=== PATIENT | female | born 1995 | race Caucasian/White ===

== ENCOUNTER 2017-12-15 11:11 | Inpatient (IN) | payer BC, OTHER ==
[2017-12-15] MEDS ORDERED: Bupivacaine 0.25% 10 ML SDV ONE (22:00)
[2017-12-15] MEDS ORDERED: Nalbuphine 20 MG/ML 1 ML Syringe IVPUSH PRN (22:36)
[2017-12-15] MEDS ORDERED: Sodium Chloride 0.9% 10 ML Syringe FLUSH PRN (22:36)
[2017-12-15] MEDS ORDERED: Ondansetron 4 MG/2 ML SDV IVPUSH PRN (22:36)
[2017-12-15] MEDS ORDERED: Oxytocin/Lactated Ringers 10 UNIT/1,000 ML BAG IV SCH (22:45)
--- NOTE | 2017-12-15 23:33 | PCM.LDHP ---
<Eliana Maguire L - Last Filed: 12/15/17 23:23> L&D History of Present Illness - General Date of Service: 12/15/17 Admit Problem/Dx: Patient Status Order with Admit Dx/Problem 12/15/17 22:36 Patient Status [ADT] Routine Admission Diagnosis/Problem Admission Diagnosis/Problem Normal labor Source of Information: Patient, Old Records History Limitations: Reports: No Limitations - History of Present Illness Introduction:: Amy is a white 22 YO female who presented to labor and delivery following spontaneous rupture of her membranes at 39-1/7 weeks gestation. VALENTINO is 12/20/17 by LMP, confirmed by U/S on 04/28/17. Patient is 1-2 cm dilated, 65 % effaced, and at -3 station, landen every 4-5 minutes. History significant for -related N/V, pre-/syncope, intermittent bilateral LE swelling. FHx Marfan syndrome in Mother, Brother, per patient she is negative on genetic testing. Otherwise non-contributory. GBS screen negative. Blood type is O NEG, antibody screen/GC/Chlamydia/HIV/HBV/ Syphilis were all negative. Per patient record, received 1 dose Rhogam at 27w2d on 09/22/17. - Related Data Allergies/Adverse Reactions: Allergies Allergy/AdvReac Type Severity Reaction Status Date / Time Sulfa (Sulfonamide Allergy Hives Verified 12/15/17 22:33 Antibiotics) sulfamethoxazole Allergy Hives Verified 12/15/17 22:33 [From Bactrim] trimethoprim [From Bactrim] Allergy Hives Verified 12/15/17 22:33 Past Medical History Respiratory History: Reports: Asthma - Past Surgical History HEENT Surgical History: Reports: Oral Surgery ([place] teeth), Tonsillectomy Social & Family History - Family History Cardiac: Reports: Hypertension (Pt. states father is on "blood pressure medication" but unsure why), Other (See Below) (Marfan-related aortic dissection in Brother, aged 18. Marfan-related valvular disease in mother) - Tobacco Use Smoking Status *Q: Never Smoker - Caffeine Use Caffeine Use: Reports: None - Living Situation & Occupation Living situation: Reports: H&P Review of Systems - Review of Systems: Review Of Systems: ROS reveals no pertinent complaints other than HPI. General: Reports: No Symptoms HEENT: Reports: No Symptoms L&D Exam - Exam Exam: See Below - Vital Signs Weight: 85.729 kg - Fonseca Score Fonseca Score Cervix Position: Posterior Fonseca Score Effacement: 51-70% Fonseca Score Dilation: 1-2 cm Fonseca Score 's Station: -3 - Exam General: Alert, Oriented HEENT: Conjunctiva Clear, Hearing Intact, Mucosa Moist & [place], Pupils Equal Lungs: Clear to Auscultation, Normal Respiratory Effort Cardiovascular: Regular Rate, Regular Rhythm GI/Abdominal Exam: Normal Bowel Sounds Extremities: Normal Inspection, Normal Range of Motion, Non-Tender, No Pedal Edema, Normal Capillary Refill Skin: Warm, Dry, Intact Psychiatric: Alert, Normal Affect, Normal Mood - Patient Data Lab Results Last 24 hrs: Laboratory Results - last 24 hr 12/15/17 Range/Units 22:48 WBC 10.79 H (3.98-10.04) K/mm3 RBC 4.29 (3.98-5.22) M/mm3 Hgb 11.0 L (11.2-15.7) gm/L Hct 34.5 (34.1-44.9) % MCV 80.4 (79.4-94.8) fl MCH 25.6 (25.6-32.2) pg MCHC 31.9 L (32.2-35.5) g/dl RDW Std Deviation 45.2 (36.4-46.3) fL Plt Count 209 (182-369) K/mm3 MPV 9.8 (9.4-12.3) fl Neut % (Auto) 71.0 (34.0-71.1) % Lymph % (Auto) 16.1 L (19.3-51.7) % [place] % (Auto) 10.1 (4.7-12.5) % Eos % (Auto) 1.9 (0.7-5.8) Baso % (Auto) 0.3 (0.1-1.2) % Neut # (Auto) 7.67 H (1.56-6.13) K/mm3 Lymph # (Auto) 1.74 (1.18-3.74) K/mm3 [place] # (Auto) 1.09 H (0.24-0.36) K/mm3 Eos # (Auto) 0.20 (0.04-0.36) K/mm3 Baso # (Auto) 0.03 (0.01-0.08) K/mm3 Result Diagrams: 12/15/17 22:48 Orders Last 24hrs: Active Orders 24 hr Category Date Time Status Patient Status [ADT] Routine ADT 12/15/17 22:36 Active Activity as Tolerated [RC] PFP Care 12/15/17 22:36 Active Communication Order [RC] ASDIRECTED Care 12/15/17 22:36 Active Heart Tones [RC] ASDIRECTED Care 12/15/17 22:37 Active Non Stress Test [RC] PER UNIT ROUTINE Care 12/15/17 22:36 Active Notify Provider [RC] PFP Care 12/15/17 22:36 Active Notify Provider [RC] PRN Care 12/15/17 22:36 Active Peripheral IV Care [RC] . DIRECTED Care 12/15/17 22:37 Active Pump Management, Intrathecal [RC] ASDIRECTED Care 12/15/17 22:37 Active Vital Signs [RC] PER UNIT ROUTINE Care 12/15/17 22:36 Active RAPID PLASMA REAGIN,RPR [CHEM] Routine Lab 12/15/17 22:48 Received Lactated Ringers [Ringers, Lactated] 1,000 ml Med 12/15/17 22:45 Active IV ASDIRECTED Nalbuphine [Nubain] Med 12/15/17 22:36 Active 10 mg IVPUSH Q2H PRN Ondansetron [Zofran] Med 12/15/17 22:36 Active 4 mg IVPUSH Q4H PRN Oxytocin/Lactated Ringers [Pitocin in LR 10 Units/1,000 Med 12/15/17 22:45 Active ML] 10 unit in 1,000 ml IV .CONTINUOUS Sodium Chloride 0.9% [Saline Flush] Med 12/15/17 22:36 Active 10 ml FLUSH ASDIRECTED PRN Electronic Heart Tones Ext w TOCO [WOMSER] Oth 12/15/17 22:36 Ordered Routine Electronic Heart Tones Internal [WOMSER] Per Unit Oth 12/15/17 22:36 Ordered Routine Peripheral IV Insertion Adult [OM.PC] Routine Oth 12/15/17 22:36 Ordered Resuscitation Status Routine Resus Stat 12/15/17 22:36 Ordered Medication Orders Lactated Ringer's (Ringers, Lactated) 1,000 mls @ 100 mls/hr IV ASDIRECTED SHELLI Oxytocin/Lactated Ringer's (Pitocin In Lr 10 Units/1,000 Ml) 10 unit in 1,000 mls @ 500 mls/hr IV .CONTINUOUS SHELLI Nalbuphine HCl (Nubain) 10 mg IVPUSH Q2H PRN PRN Reason: pain Ondansetron HCl (Zofran) 4 mg IVPUSH Q4H PRN PRN Reason: Nausea/Vomiting Sodium Chloride (Saline Flush) 10 ml FLUSH ASDIRECTED PRN PRN Reason: Keep Vein Open Assessment/Plan Comment:: ASSESSMENT 1. 39-1/7 weeks gestation 2. Normal labor 3. Rh negative state in antepartum/georgi- state 4. Hx Asthma PLAN 1. Continue monitoring labor 2. Plan for <Reg Ferrer F - Last Filed: 12/16/17 07:05> L&D History of Present Illness - General Admit Problem/Dx: Patient Status Order with Admit Dx/Problem 12/15/17 22:36 Patient Status [ADT] Routine Admission Diagnosis/Problem Admission Diagnosis/Problem Normal labor H&P Review of Systems - Review of Systems: Review Of Systems: See Below L&D Exam - Exam Exam: See Below - Vital Signs Vital Signs: Last Vital Signs Temp 36.3 C 12/16/17 01:03 Pulse 55 L 12/16/17 01:03 Resp 16 12/16/17 02:10 BP 137/74 12/16/17 01:03 Pulse Ox - Patient Data Lab Results Last 24 hrs: Laboratory Results - last 24 hr 12/15/17 Range/Units 22:48 WBC 10.79 H (3.98-10.04) K/mm3 RBC 4.29 (3.98-5.22) M/mm3 Hgb 11.0 L (11.2-15.7) gm/L Hct 34.5 (34.1-44.9) % MCV 80.4 (79.4-94.8) fl MCH 25.6 (25.6-32.2) pg MCHC 31.9 L (32.2-35.5) g/dl RDW Std Deviation 45.2 (36.4-46.3) fL Plt Count 209 (182-369) K/mm3 MPV 9.8 (9.4-12.3) fl Neut % (Auto) 71.0 (34.0-71.1) % Lymph % (Auto) 16.1 L (19.3-51.7) % [place] % (Auto) 10.1 (4.7-12.5) % Eos % (Auto) 1.9 (0.7-5.8) Baso % (Auto) 0.3 (0.1-1.2) % Neut # (Auto) 7.67 H (1.56-6.13) K/mm3 Lymph # (Auto) 1.74 (1.18-3.74) K/mm3 [place] # (Auto) 1.09 H (0.24-0.36) K/mm3 Eos # (Auto) 0.20 (0.04-0.36) K/mm3 Baso # (Auto) 0.03 (0.01-0.08) K/mm3 Result Diagrams: 12/15/17 22:48 Problem List Initiated/Reviewed/Updated: Yes Orders Last 24hrs: Active Orders 24 hr Category Date Time Status Patient Status [ADT] Routine ADT 12/15/17 22:36 Active Activity as Tolerated [RC] PFP Care 12/15/17 22:36 Active Communication Order [RC] ASDIRECTED Care 12/15/17 22:36 Active Heart Tones [RC] ASDIRECTED Care 12/15/17 22:37 Active Non Stress Test [RC] PER UNIT ROUTINE Care 12/15/17 22:36 Active Notify Provider [RC] PFP Care 12/15/17 22:36 Active Notify Provider [RC] PRN Care 12/15/17 22:36 Active Peripheral IV Care [RC] . DIRECTED Care 12/15/17 22:37 Active Pump Management, Intrathecal [RC] ASDIRECTED Care 12/15/17 22:37 Active Vital Signs [RC] PER UNIT ROUTINE Care 12/15/17 22:36 Active RAPID PLASMA REAGIN,RPR [CHEM] Routine Lab 12/15/17 22:48 Received Bupivacaine/fentaNYL/NS [fentaNYL/Bupivacaine/NS 2 MCG- Med 12/16/17 02:15 Active 0.125% 100 ML] 100 ml EPIDUR ASDIRECTED Lactated Ringers [Ringers, Lactated] 1,000 ml Med 12/15/17 22:45 Active IV ASDIRECTED Nalbuphine [Nubain] Med 12/15/17 22:36 Active 10 mg IVPUSH Q2H PRN Ondansetron [Zofran] Med 12/16/17 02:10 Active 4 mg IVPUSH ONETIME PRN Ondansetron [Zofran] Med 12/15/17 22:36 Active 4 mg IVPUSH Q4H PRN Oxytocin/Lactated Ringers [Pitocin in LR 10 Units/1,000 Med 12/15/17 22:45 Active ML] 10 unit in 1,000 ml IV .CONTINUOUS Sodium Chloride 0.9% [Saline Flush] Med 12/15/17 22:36 Active 10 ml FLUSH ASDIRECTED PRN diphenhydrAMINE [Benadryl] Med 12/16/17 02:10 Active 25 mg IVPUSH Q6H PRN ePHEDrine [ePHEDrine Sulfate] Med 12/16/17 02:10 Active 5 mg IVPUSH ASDIRECTED PRN fentaNYL [Sublimaze] Med 12/16/17 02:10 Active 100 mcg EPIDUR Q3H PRN Electronic Heart Tones Ext w TOCO [WOMSER] Oth 12/15/17 22:36 Ordered Routine Electronic Heart Tones Internal [WOMSER] Per Unit Oth 12/15/17 22:36 Ordered Routine Peripheral IV Insertion Adult [OM.PC] Routine Oth 12/15/17 22:36 Ordered Resuscitation Status Routine Resus Stat 12/15/17 22:36 Ordered Medication Orders Diphenhydramine HCl (Benadryl) 25 mg IVPUSH Q6H PRN PRN Reason: Pruritis Ephedrine Sulfate (Ephedrine Sulfate) 5 mg IVPUSH ASDIRECTED PRN PRN Reason: Hypotension Fentanyl (Sublimaze) 100 mcg EPIDUR Q3H PRN PRN Reason: Pain Last Admin: 12/16/17 04:28 Dose: 100 mcg Fentanyl/Bupivacaine HCl (Fentanyl/Bupivacaine/Ns 2 Mcg-0.125% 100 Ml) 100 ml EPIDUR ASDIRECTED SHELLI Last Admin: 12/16/17 04:29 Dose: 100 ml Lactated Ringer's (Ringers, Lactated) 1,000 mls @ 100 mls/hr IV ASDIRECTED SHELLI Last Admin: 12/16/17 03:30 Dose: 100 mls/hr Oxytocin/Lactated Ringer's (Pitocin In Lr 10 Units/1,000 Ml) 10 unit in 1,000 mls @ 500 mls/hr IV .CONTINUOUS SHELLI Nalbuphine HCl (Nubain) 10 mg IVPUSH Q2H PRN PRN Reason: pain Ondansetron HCl (Zofran) 4 mg IVPUSH Q4H PRN PRN Reason: Nausea/Vomiting Ondansetron HCl (Zofran) 4 mg IVPUSH ONETIME PRN PRN Reason: Nausea/Vomiting Sodium Chloride (Saline Flush) 10 ml FLUSH ASDIRECTED PRN PRN Reason: Keep Vein Open
[2017-12-16] MEDS ORDERED: diphenhydrAMINE 50 MG/ML SDV IVPUSH PRN (02:10)
[2017-12-16] MEDS ORDERED: Ondansetron 4 MG/2 ML SDV IVPUSH PRN (02:10)
[2017-12-16] MEDS ORDERED: ePHEDrine 50 MG/ML SDV IVPUSH PRN (02:10)
[2017-12-16] MEDS ORDERED: fentaNYL 100 MCG/2 ML SDV EPIDUR PRN (02:10)
--- NOTE | 2017-12-16 02:10 | PCM.PREANE ---
Preanesthetic Assessment - Procedure Proposed Procedure: JANETH - Anesthesia/Transfusion/Family Hx Anesthesia History: Prior Anesthesia Without Reaction Family History of Anesthesia Reaction: No Transfusion History: No Prior Transfusion(s) - Review of Systems General: No Symptoms Pulmonary: Other (Asthma- uses symbicort daily ) Cardiovascular: No Symptoms Gastrointestinal: Other (GERD during ) Neurological: No Symptoms Other: Reports: None - Physical Assessment NPO Status Date: 12/16/17 NPO Status Time: 15:00 Respiratory Rate: 16 Vital Signs: Last Vital Signs Temp 36.3 C 12/16/17 01:03 Pulse 55 L 12/16/17 01:03 Resp 16 12/16/17 01:03 BP 137/74 12/16/17 01:03 Pulse Ox Height: 1.65 m Weight: 85.729 kg ASA Class: 2 Mental Status: Alert & Oriented x3 Airway Class: Mallampati = 1 Dentition: Reports: Normal Dentition Thyro-Mental Finger Breadths: 3 Mouth Opening Finger Breadths: 3 ROM/Head Extension: Full Lungs: Clear to Auscultation, Normal Respiratory Effort Cardiovascular: Regular Rate, Regular Rhythm - Lab Values: Laboratory Last Values WBC 10.79 K/mm3 (3.98-10.04) H 12/15/17 22:48 RBC 4.29 M/mm3 (3.98-5.22) 12/15/17 22:48 Hgb 11.0 gm/L (11.2-15.7) L 12/15/17 22:48 Hct 34.5 % (34.1-44.9) 12/15/17 22:48 MCV 80.4 fl (79.4-94.8) 12/15/17 22:48 MCH 25.6 pg (25.6-32.2) 12/15/17 22:48 MCHC 31.9 g/dl (32.2-35.5) L 12/15/17 22:48 RDW Std Deviation 45.2 fL (36.4-46.3) 12/15/17 22:48 Plt Count 209 K/mm3 (182-369) 12/15/17 22:48 MPV 9.8 fl (9.4-12.3) 12/15/17 22:48 Neut % (Auto) 71.0 % (34.0-71.1) 12/15/17 22:48 Lymph % (Auto) 16.1 % (19.3-51.7) L 12/15/17 22:48 [place] % (Auto) 10.1 % (4.7-12.5) 12/15/17 22:48 Eos % (Auto) 1.9 (0.7-5.8) 12/15/17 22:48 Baso % (Auto) 0.3 % (0.1-1.2) 12/15/17 22:48 Neut # (Auto) 7.67 K/mm3 (1.56-6.13) H 12/15/17 22:48 Lymph # (Auto) 1.74 K/mm3 (1.18-3.74) 12/15/17 22:48 [place] # (Auto) 1.09 K/mm3 (0.24-0.36) H 12/15/17 22:48 Eos # (Auto) 0.20 K/mm3 (0.04-0.36) 12/15/17 22:48 Baso # (Auto) 0.03 K/mm3 (0.01-0.08) 12/15/17 22:48 - Allergies Allergies/Adverse Reactions: Allergies Allergy/AdvReac Type Severity Reaction Status Date / Time Sulfa (Sulfonamide Allergy Hives Verified 12/15/17 22:33 Antibiotics) sulfamethoxazole Allergy Hives Verified 12/15/17 22:33 [From Bactrim] trimethoprim [From Bactrim] Allergy Hives Verified 12/15/17 22:33 - Blood Blood Available: No Product(s) Available: None - Anesthesia Plan Pre-Op Medication Ordered: None - Acknowledgements Anesthesia Type Planned: Epidural Pt an Appropriate Candidate for the Planned Anesthesia: Yes Alternatives and Risks of Anesthesia Discussed w Pt/Guardian: Yes Pt/Guardian Understands and Agrees with Anesthesia Plan: Yes PreAnesthesia Questionnaire 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: - Past Surgical History HEENT Surgical History: Reports: Oral Surgery ([place] teeth), Tonsillectomy - SUBSTANCE USE Smoking Status *Q: Never Smoker Second Hand Smoke Exposure: No Recreational Drug Use History: No - HOME MEDS Home Medications: Home Meds Budesonide/Formoterol Fumarate [Symbicort 160-4.5 Mcg Inhaler] 1 puff IH BID 07/30 [History] - CURRENT (IN HOUSE) MEDS Current Meds: Current Medications Lactated Ringer's (Ringers, Lactated) 1,000 mls @ 100 mls/hr IV ASDIRECTED SHELLI Oxytocin/Lactated Ringer's (Pitocin In Lr 10 Units/1,000 Ml) 10 unit in 1,000 mls @ 500 mls/hr IV .CONTINUOUS SHELLI Nalbuphine HCl (Nubain) 10 mg IVPUSH Q2H PRN PRN Reason: pain Ondansetron HCl (Zofran) 4 mg IVPUSH Q4H PRN PRN Reason: Nausea/Vomiting Sodium Chloride (Saline Flush) 10 ml FLUSH ASDIRECTED PRN PRN Reason: Keep Vein Open
[2017-12-16] MEDS ORDERED: Bupivacaine/fentaNYL/NS 100 ML Bag EPIDUR SCH (02:15)
[2017-12-16] MEDS: Lactated Ringers 1,000 ML IV SCH ×3 (03:30→07:07)
--- NOTE | 2017-12-16 11:31 | PCM.DEL ---
L & D Note - General Info Date of Service: 12/16/17 - Delivery Note Labor: Augmented by Oxytocin Delivery Outcome: Livebirth Delivery Method: Spontaneous Vaginal Delivery-Single Delivery Mode: Spontaneous Presentation: Left Occiput Anterior (LORENZA) Nuchal Cord: None Anesthesia Type: Epidural Amniotic Fluid Description: Clear Episiotomy Type: None Laceration: 1st Degree, Perineal Suture type: Vicryl Suture size: 2-0 Placenta: Intact, Spontaneous Cord: 3 Vessels Estimated Blood Loss: 250 Resuscitation Needed: Yes : Bulb Syringe, Stimulated, Warmed, [place] Used, Warmer Used Delivery Comments (Free Text/Narrative):: Patient found to be complete and began pushing. With maternal pushing effort head delivered from an LORENZA presentation. No nuchal cord present. With gentle downward traction the shoulders and body delivered. Infant placed on maternal abdomen. Cord clamped and cut. Cord blood obtained. Placenta allowed time to separate and expelled intact. Inspection of the perineum showed a 1st degree laceration repaired with a 2-0 vicryl in the typical fashion - General Info Date of Service: 12/16/17 - Patient Data Vitals - Most Recent: Last Vital Signs Temp 36.3 C 12/16/17 01:03 Pulse 55 L 12/16/17 01:03 Resp 16 12/16/17 02:10 BP 137/74 12/16/17 01:03 Pulse Ox Weight - Most Recent: 85.729 kg Lab Results Last 24 Hours: Laboratory Results - last 24 hr 12/15/17 Range/Units 22:48 WBC 10.79 H (3.98-10.04) K/mm3 RBC 4.29 (3.98-5.22) M/mm3 Hgb 11.0 L (11.2-15.7) gm/L Hct 34.5 (34.1-44.9) % MCV 80.4 (79.4-94.8) fl MCH 25.6 (25.6-32.2) pg MCHC 31.9 L (32.2-35.5) g/dl RDW Std Deviation 45.2 (36.4-46.3) fL Plt Count 209 (182-369) K/mm3 MPV 9.8 (9.4-12.3) fl Neut % (Auto) 71.0 (34.0-71.1) % Lymph % (Auto) 16.1 L (19.3-51.7) % [place] % (Auto) 10.1 (4.7-12.5) % Eos % (Auto) 1.9 (0.7-5.8) Baso % (Auto) 0.3 (0.1-1.2) % Neut # (Auto) 7.67 H (1.56-6.13) K/mm3 Lymph # (Auto) 1.74 (1.18-3.74) K/mm3 [place] # (Auto) 1.09 H (0.24-0.36) K/mm3 Eos # (Auto) 0.20 (0.04-0.36) K/mm3 Baso # (Auto) 0.03 (0.01-0.08) K/mm3 Med Orders - Current: Current Medications Diphenhydramine HCl (Benadryl) 25 mg IVPUSH Q6H PRN PRN Reason: Pruritis Ephedrine Sulfate (Ephedrine Sulfate) 5 mg IVPUSH ASDIRECTED PRN PRN Reason: Hypotension Fentanyl (Sublimaze) 100 mcg EPIDUR Q3H PRN PRN Reason: Pain Last Admin: 12/16/17 04:28 Dose: 100 mcg Fentanyl/Bupivacaine HCl (Fentanyl/Bupivacaine/Ns 2 Mcg-0.125% 100 Ml) 100 ml EPIDUR ASDIRECTED SHELLI Last Admin: 12/16/17 04:29 Dose: 100 ml Lactated Ringer's (Ringers, Lactated) 1,000 mls @ 100 mls/hr IV ASDIRECTED SHELLI Last Admin: 12/16/17 07:07 Dose: 100 mls/hr Oxytocin/Lactated Ringer's (Pitocin In Lr 10 Units/1,000 Ml) 10 unit in 1,000 mls @ 500 mls/hr IV .CONTINUOUS SHELLI Nalbuphine HCl (Nubain) 10 mg IVPUSH Q2H PRN PRN Reason: pain Ondansetron HCl (Zofran) 4 mg IVPUSH Q4H PRN PRN Reason: Nausea/Vomiting Ondansetron HCl (Zofran) 4 mg IVPUSH ONETIME PRN PRN Reason: Nausea/Vomiting Sodium Chloride (Saline Flush) 10 ml FLUSH ASDIRECTED PRN PRN Reason: Keep Vein Open - Problem List & Annotations (1) 39 weeks gestation of SNOMED Code(s): 56625481 Code(s): Z3A.39 - 39 WEEKS GESTATION OF Status: Acute Current Visit: Yes (2) SROM (spontaneous rupture of membranes) SNOMED Code(s): 847841837 Code(s): LFM7174 - Status: Acute Current Visit: Yes (3) Vaginal delivery SNOMED Code(s): 916276635 Code(s): O80 - ENCOUNTER FOR FULL-TERM UNCOMPLICATED DELIVERY Status: Acute Current Visit: Yes - Problem List Review Problem List Initiated/Reviewed/Updated: Yes - Assessment Assessment:: 22 y/o G1 now P1001 PPD#0 from at 39 3/7 wks - Plan Plan:: * Routine cares * Encourage breast feeding * Will assess baby blood type to see if additional Rhogam required * Discharge home in 1-2 days
[2017-12-16] MEDS ORDERED: Acetaminophen 325 MG Tab PO PRN (12:03)
[2017-12-16] MEDS ORDERED: Ibuprofen 600 MG Tab PO PRN (12:03)
[2017-12-16] MEDS ORDERED: Docusate Sodium 100 MG Cap PO PRN (12:03)
[2017-12-16] MEDS ORDERED: Witch Hazel Medicated Pads 100/Jar TOP PRN (12:03)
[2017-12-16] MEDS ORDERED: Benzocaine/Menthol 20%-0.5% Spray 56 GM Canister TOP PRN (12:03)
[2017-12-16] MEDS ORDERED: Lanolin 100% Cream 7 GM Tube TOP PRN (12:03)
--- NOTE | 2017-12-17 02:03 | PCM.PNPP ---
- General Info Date of Service: 12/17/17 Functional Status: Reports: Pain Controlled, Tolerating Diet, Ambulating, Urinating - Review of Systems General: Reports: No Symptoms Pulmonary: Reports: No Symptoms Cardiovascular: Reports: No Symptoms Gastrointestinal: Reports: No Symptoms Genitourinary: Reports: No Symptoms Musculoskeletal: Reports: No Symptoms - Patient Data Vital Signs - Most Recent: Last Vital Signs Temp 37.2 C 12/16/17 15:47 Pulse 99 12/16/17 15:47 Resp 18 12/16/17 15:47 BP 121/66 12/16/17 15:47 Pulse Ox 100 12/16/17 15:47 Weight - Most Recent: 85.729 kg I&O - Last 24 Hours: Intake & Output 12/16/17 12/16/17 12/17/17 14:59 22:59 06:59 Intake Total 0 Balance 0 Lab Results - Last 24 Hours: Laboratory Results - last 24 hr 12/16/17 Range/Units 16:15 Blood Type O NEGATIVE Gel Antibody Screen Negative Screen 0 ros/5 flds - neg RhIG Candidate? Yes Rhogam Indicated Yes, baby rh pos H Med Orders - Current: Current Medications Acetaminophen (Tylenol) 650 mg PO Q4H PRN PRN Reason: mild pain or fever Benzocaine/Menthol (Dermoplast Pain Relief [place]) 0 gm TOP ASDIRECTED PRN PRN Reason: Perineal Comfort Measure Docusate Sodium (Colace) 100 mg PO BID PRN PRN Reason: Constipation Emollient Ointment (Lansinoh Hpa) 0 gm TOP ASDIRECTED PRN PRN Reason: Sore Nipples Ibuprofen (Motrin) 600 mg PO Q6H PRN PRN Reason: Mild pain or fever [place] (Tucks) 1 pad TOP ASDIRECTED PRN PRN Reason: Hemorrhoid pain Discontinued Medications Diphenhydramine HCl (Benadryl) 25 mg IVPUSH Q6H PRN PRN Reason: Pruritis Ephedrine Sulfate (Ephedrine Sulfate) 5 mg IVPUSH ASDIRECTED PRN PRN Reason: Hypotension Fentanyl (Sublimaze) 100 mcg EPIDUR Q3H PRN PRN Reason: Pain Last Admin: 12/16/17 04:28 Dose: 100 mcg Fentanyl/Bupivacaine HCl (Fentanyl/Bupivacaine/Ns 2 Mcg-0.125% 100 Ml) 100 ml EPIDUR ASDIRECTED [facility] Last Admin: 12/16/17 04:29 Dose: 100 ml Lactated Ringer's (Ringers, Lactated) 1,000 mls @ 100 mls/hr IV ASDIRECTED [facility] Last Admin: 12/16/17 07:07 Dose: 100 mls/hr Oxytocin/Lactated Ringer's (Pitocin In Lr 10 Units/1,000 Ml) 10 unit in 1,000 mls @ 500 mls/hr IV .CONTINUOUS [facility] Last Admin: 12/16/17 11:11 Dose: 500 mls/hr Nalbuphine HCl (Nubain) 10 mg IVPUSH Q2H PRN PRN Reason: pain Ondansetron HCl (Zofran) 4 mg IVPUSH Q4H PRN PRN Reason: Nausea/Vomiting Ondansetron HCl (Zofran) 4 mg IVPUSH ONETIME PRN PRN Reason: Nausea/Vomiting Sodium Chloride (Saline Flush) 10 ml FLUSH ASDIRECTED PRN PRN Reason: Keep Vein Open - Infant Interaction Infant Disposition, : in Room with Family Interaction: Holding Feeding: Breastfed ; Nursed Well Support Person: - Recovery Exam Fundal Tone: Firm Fundal Level: At Umbilicus Fundal Placement: Midline Lochia Amount: Small Lochia Color: Rubra/Red Perineum Description: Other (see below) Other Perinuem Description: 1st degree with repair Episiotomy/Laceration: Approximated Bladder Status: Voiding Urinary Elimination: Voided - Exam General: Alert, Oriented, Cooperative GI/Abdominal Exam: Soft, Non-Tender Extremities: Normal Inspection - Problem List & Annotations (1) 39 weeks gestation of SNOMED Code(s): 89945198 Code(s): Z3A.39 - 39 WEEKS GESTATION OF Status: Acute (2) SROM (spontaneous rupture of membranes) SNOMED Code(s): 502479826 Code(s): SNI6973 - Status: Acute (3) Vaginal delivery SNOMED Code(s): 107147476 Code(s): O80 - ENCOUNTER FOR FULL-TERM UNCOMPLICATED DELIVERY Status: Acute - Problem List Review Problem List Initiated/Reviewed/Updated: Yes - My Orders Last 24 Hours: My Active Orders 12/16/17 12:03 Activity as Tolerated [RC] PER UNIT ROUTINE Vital Signs [RC] 03,09,15,21 Acetaminophen [Tylenol] 650 mg PO Q4H PRN Benzocaine/Menthol [Dermoplast Pain Relief [place]] See Dose Instructions TOP ASDIRECTED PRN Docusate Sodium [Colace] 100 mg PO BID PRN Ibuprofen [Motrin] 600 mg PO Q6H PRN Lanolin [Lansinoh HPA] See Dose Instructions TOP ASDIRECTED PRN [place] [Tucks] 1 pad TOP ASDIRECTED PRN Assess Lochia [WOMSER] Per Unit Routine Assess Uterine Involution [WOMSER] Per Unit Routine Breast Pump [WOMSER] Per Unit Routine Heat Therapy [OM.PC] PRN Ice Therapy [OM.PC] Per Unit Routine Perineal Care [OM.PC] Per Unit Routine Peripheral IV Discontinue [OM.PC] Routine Sitz Bath [OM.PC] Per Unit Routine 12/16/17 Breakfast Regular Diet [DIET] 12/17/17 12:03 Heat Therapy [OM.PC] PRN - Assessment Assessment:: 22 y/o G1 now P1001 PPD#1 from at 39 3/7 wks - Plan Plan:: * Routine cares * Encourage breast feeding * Discharge home today
--- NOTE | 2017-12-17 07:04 | PCM.DCSUM1 ---
Discharge Summary - Discharge Data Discharge Date: 12/17/17 Discharge Disposition: Home, Self-Care 01 Condition: Good - Discharge Diagnosis/Problem(s) (1) 39 weeks gestation of SNOMED Code(s): 94023303 ICD Code: Z3A.39 - 39 WEEKS GESTATION OF Status: Acute (2) SROM (spontaneous rupture of membranes) SNOMED Code(s): 719788336 ICD Code: BXQ5128 - Status: Acute (3) Vaginal delivery SNOMED Code(s): 358566814 ICD Code: O80 - ENCOUNTER FOR FULL-TERM UNCOMPLICATED DELIVERY Status: Acute - Patient Summary/Data Complications: None Consults: None Recommended Follow-up Testing/Procedures: Follow up in 3-6 weeks for check Hospital Course: 22 y/o who presented at 39 2/7 wks with ROM. She was started on pitocin for augmentation and progressed well to complete dilation. She underwent an uncomplicated . See delivery note for full details. she did well and requested discharge home on PPD#1 - Patient Instructions Diet: Regular Diet as Tolerated Activity: As Tolerated Activity, Other: Pelvic Rest for 6 weeks Driving: May Drive Today Showering/Bathing: May Shower Showering/Bathing, Other: May Bathe Notify Provider of: Fever, Increased Pain, Swelling and Redness, Drainage, Nausea and/or Vomiting - Discharge Plan *PRESCRIPTION DRUG MONITORING PROGRAM REVIEWED*: Not Applicable *COPY OF PRESCRIPTION DRUG MONITORING REPORT IN PATIENT BRENNAN: Not Applicable Home Medications: Home Meds Budesonide/Formoterol Fumarate [Symbicort 160-4.5 Mcg Inhaler] 1 puff IH BID 07/30 [History] Docusate Sodium [Colace] 100 mg PO BID PRN cap 12/17/17 [Rx] Ibuprofen [Motrin] 600 mg PO Q6H PRN tablet 12/17/17 [Rx] Patient Handouts: Home Care Instructions for Mom Referrals: Emma Childs MD [Primary Care Provider] - (3-6 weeks for check ) - Discharge Summary/Plan Comment DC Time >30 min.: No - Patient Data Vitals - Most Recent: Last Vital Signs Temp 36.9 C 12/17/17 04:30 Pulse 86 12/17/17 04:30 Resp 16 12/17/17 04:30 BP 129/83 12/17/17 04:30 Pulse Ox 100 12/17/17 04:30 Weight - Most Recent: 85.729 kg I&O - Last 24 hours: Intake & Output 12/16/17 12/17/17 12/17/17 22:59 06:59 14:59 Intake Total 0 Balance 0 Lab Results - Last 24 hrs: Laboratory Results - last 24 hr 12/16/17 Range/Units 16:15 Blood Type O NEGATIVE Gel Antibody Screen Negative Screen 0 ros/5 flds - neg RhIG Candidate? Yes Rhogam Indicated Yes, baby rh pos H Med Orders - Current: Current Medications Acetaminophen (Tylenol) 650 mg PO Q4H PRN PRN Reason: mild pain or fever Benzocaine/Menthol (Dermoplast Pain Relief [place]) 0 gm TOP ASDIRECTED PRN PRN Reason: Perineal Comfort Measure Docusate Sodium (Colace) 100 mg PO BID PRN PRN Reason: Constipation Emollient Ointment (Lansinoh Hpa) 0 gm TOP ASDIRECTED PRN PRN Reason: Sore Nipples Ibuprofen (Motrin) 600 mg PO Q6H PRN PRN Reason: Mild pain or fever [place] (Tucks) 1 pad TOP ASDIRECTED PRN PRN Reason: Hemorrhoid pain Discontinued Medications Diphenhydramine HCl (Benadryl) 25 mg IVPUSH Q6H PRN PRN Reason: Pruritis Ephedrine Sulfate (Ephedrine Sulfate) 5 mg IVPUSH ASDIRECTED PRN PRN Reason: Hypotension Fentanyl (Sublimaze) 100 mcg EPIDUR Q3H PRN PRN Reason: Pain Last Admin: 12/16/17 04:28 Dose: 100 mcg Fentanyl/Bupivacaine HCl (Fentanyl/Bupivacaine/Ns 2 Mcg-0.125% 100 Ml) 100 ml EPIDUR ASDIRECTED SHELLI Last Admin: 12/16/17 04:29 Dose: 100 ml Lactated Ringer's (Ringers, Lactated) 1,000 mls @ 100 mls/hr IV ASDIRECTED SHELLI Last Admin: 12/16/17 07:07 Dose: 100 mls/hr Oxytocin/Lactated Ringer's (Pitocin In Lr 10 Units/1,000 Ml) 10 unit in 1,000 mls @ 500 mls/hr IV .CONTINUOUS SHELLI Last Admin: 12/16/17 11:11 Dose: 500 mls/hr Nalbuphine HCl (Nubain) 10 mg IVPUSH Q2H PRN PRN Reason: pain Ondansetron HCl (Zofran) 4 mg IVPUSH Q4H PRN PRN Reason: Nausea/Vomiting Ondansetron HCl (Zofran) 4 mg IVPUSH ONETIME PRN PRN Reason: Nausea/Vomiting Sodium Chloride (Saline Flush) 10 ml FLUSH ASDIRECTED PRN PRN Reason: Keep Vein Open
--- NOTE | 2017-12-17 08:26 | PCM48HPAN ---
Post Anesthesia Note - EVALUATION WITHIN 48HRS OF ANESTHETIC Vital Signs in Normal Range: Yes Patient Participated in Evaluation: Yes Respiratory Function Stable: Yes Airway Patent: Yes Cardiovascular Function Stable: Yes Hydration Status Stable: Yes Pain Control Satisfactory: Yes Nausea and Vomiting Control Satisfactory: Yes Mental Status Recovered: Yes Pulse Rate: 76 Resp Rate: 16 Temperature: 97.7 F Blood Pressure: 109/66
== END 2017-12-17 15:10 | disposition home or self-care (01) | DRG 775 ==
LOC: JD.OB 11:11 → OBSVTOIN 12-16 11:11 → JD.OB 12-16 11:12
PROVIDERS: ADMIT Obstetrics & Gynecology; ATTEND Obstetrics & Gynecology
PROC: 10E0XZZ Delivery of Products of Conception, External Approach (ICD-10-PCS; principal; 2017-12-16)
PROC: 6A550ZT Pheresis of Cord Blood Stem Cells, Single (ICD-10-PCS; 2017-12-16)
PROC: 3E0234Z Introduction of Serum, Toxoid and Vaccine into Muscle, Percutaneous Approach (ICD-10-PCS; 2017-12-16)
PROC: 0HQ9XZZ Repair Perineum Skin, External Approach (ICD-10-PCS; 2017-12-16)
PROC: 00HU33Z Insertion of Infusion Device into Spinal Canal, Percutaneous Approach (ICD-10-PCS; 2017-12-16)
PROC: 3E0R3BZ Introduction of Anesthetic Agent into Spinal Canal, Percutaneous Approach (ICD-10-PCS; 2017-12-16)
DX: O99.52 Diseases of the respiratory system complicating childbirth (principal); Z3A.39 39 weeks gestation of pregnancy; Z37.0 Single live birth; J45.909 Unspecified asthma, uncomplicated; O26.893 Other specified pregnancy related conditions, third trimester; Z67.41 Type O blood, Rh negative; O70.0 First degree perineal laceration during delivery; Z88.1 Allergy status to other antibiotic agents; Z88.2 Allergy status to sulfonamides; Z79.899 Other long term (current) drug therapy
CPT/HCPCS: 36415; 51702; 59025; 59300; 85025; 85461; 86592; 86850; 86900; 86901; A9270-GY; J2590; J2790; J3010; J3490; J7120

== ENCOUNTER 2019-07-18 00:17 | Inpatient (IN) | payer OTHER ==
[~2019-07-18 00:17] MED LIST: Bupivacaine 0.25% 10 ML SDV ONE
[2019-07-18] MEDS ORDERED: Lactated Ringers 1,000 ML IV ONE (01:35)
[2019-07-18] MEDS ORDERED: Sodium Chloride 0.9% 10 ML Syringe FLUSH PRN (01:36)
[2019-07-18] MEDS ORDERED: Nalbuphine 10 MG/ML Syringe IVPUSH PRN (04:26)
[2019-07-18] MEDS ORDERED: Calcium Carbonate 500 MG Tab.Chew PO PRN (04:26)
[2019-07-18] MEDS ORDERED: Ondansetron 4 MG/2 ML SDV IVPUSH PRN (04:26)
[2019-07-18] MEDS ORDERED: Acetaminophen 325 MG Tab PO PRN ×2 (04:26→12:35)
[2019-07-18] MEDS ORDERED: Oxytocin/Lactated Ringers 10 UNIT/1,000 ML BAG IV SCH ×2 (04:30)
[2019-07-18] MEDS ORDERED: diphenhydrAMINE 50 MG/ML SDV IVPUSH PRN (07:08)
[2019-07-18] MEDS ORDERED: fentaNYL 100 MCG/2 ML SDV EPIDUR PRN (07:08)
[2019-07-18] MEDS ORDERED: ePHEDrine 50 MG/ML SDV IVPUSH PRN (07:08)
[2019-07-18] MEDS ORDERED: Bupivacaine/fentaNYL/NS 100 ML Bag EPIDUR PRN (07:08)
--- NOTE | 2019-07-18 07:31 | PCM.LDHP ---
L&D History of Present Illness - General Date of Service: 07/18/19 Admit Problem/Dx: Patient Status Order with Admit Dx/Problem 07/18/19 00:30 Patient Status [ADT] Routine Admission Diagnosis/Problem Admission Diagnosis/Problem Source of Information: Patient History Limitations: Reports: No Limitations - History of Present Illness Introduction:: Patient is a 23 y/o at 39 5/7 wks who presents for contractions. Have been on and off over the last few days. 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 History: Reports: 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 Para: 1 LMP (Approximate): - Past Surgical History HEENT Surgical History: Reports: Oral Surgery (wisdom tooth), Tonsillectomy Social & Family History - Family History Family Medical History: Noncontributory Cardiac: Reports: Hypertension, Other (See Below) - Tobacco Use Smoking Status *Q: Never Smoker Second Hand Smoke Exposure: No - Caffeine Use Caffeine Use: Reports: None - Alcohol Use Alcohol Use History: No - Recreational Drug Use Recreational Drug Use: No - Living Situation & Occupation Living situation: Reports: H&P Review of Systems - Review of Systems: Review Of Systems: See Below General: Reports: No Symptoms Pulmonary: Reports: No Symptoms Cardiovascular: Reports: No Symptoms Gastrointestinal: Reports: Abdominal Pain (contractions) Genitourinary: Reports: No Symptoms Musculoskeletal: Reports: No Symptoms Psychiatric: Reports: No Symptoms Neurological: Reports: No Symptoms L&D Exam - Exam Exam: See Below - Vital Signs Vital Signs: Last Vital Signs Temp 36.2 C 07/18/19 00:30 Pulse Resp 16 07/18/19 00:30 BP 117/79 07/18/19 00:30 Pulse Ox 100 07/18/19 00:30 Weight: 88.451 kg - OB Specific Contraction Intensity: Mild to Moderate Movement: Active Heart Tones: Present Heart Tones per Min: 140 Heart Rate (FHR) Variability: Moderate (6-25 bmp) Presentation: Vertex - Fonseca Score Fonseca Score Cervix Position: Midposition Fonseca Score Consistency: Soft Fonseca Score Effacement: 51-70% Fonseca Score Dilation: 3-4 cm Fonseca Score 's Station: -2 Fonseca Score Total: 8 - Exam General: Alert, Oriented, Cooperative Lungs: Clear to Auscultation, Normal Respiratory Effort Cardiovascular: Regular Rate, Regular Rhythm GI/Abdominal Exam: Soft, Non-Tender Genitourinary: Normal external exam Extremities: Normal Inspection Skin: Warm, Dry, Intact - Patient Data Lab Results Last 24 hrs: Laboratory Results - last 24 hr 07/18/19 07/18/19 Range/Units 01:00 05:05 WBC 9.26 (3.98-10.04) K/mm3 RBC 3.90 L (3.98-5.22) M/mm3 Hgb 9.9 L (11.2-15.7) gm/dl Hct 32.3 L (34.1-44.9) % MCV 82.8 (79.4-94.8) fl MCH 25.4 L (25.6-32.2) pg MCHC 30.7 L (32.2-35.5) g/dl RDW Std Deviation 46.9 H (36.4-46.3) fL Plt Count 173 L (182-369) K/mm3 MPV 10.0 (9.4-12.3) fl Urine Color Light yellow (Yellow) Urine Appearance Clear (Clear) Urine pH 7.0 (5.0-8.0) Ur Specific [place] 1.010 (1.005-1.030) Urine Protein Negative (Negative) Urine Glucose (UA) Negative (Negative) Urine Ketones Negative (Negative) Urine Occult Blood Negative (Negative) Urine Nitrite Negative (Negative) Urine Bilirubin Negative (Negative) Urine Urobilinogen 0.2 (0.2-1.0) Ur Leukocyte Esterase Negative (Negative) Result Diagrams: 07/18/19 05:05 - Problem List (1) 39 weeks gestation of SNOMED Code(s): 17354584 ICD Code: Z3A.39 - 39 WEEKS GESTATION OF Status: Acute Current Visit: No (2) Rh negative state in antepartum period SNOMED Code(s): 744529842 ICD Code: O26.899 - OTH RELATED CONDITIONS, UNSPECIFIED TRIMESTER; Z67.91 - UNSPECIFIED BLOOD TYPE, RH NEGATIVE Status: Acute Current Visit: Yes (3) Asthma SNOMED Code(s): 211824860 ICD Code: J45.909 - UNSPECIFIED ASTHMA, UNCOMPLICATED Status: Acute Current Visit: Yes Qualifiers: Asthma severity: mild Asthma persistence: intermittent Asthma complication type: uncomplicated Qualified Code(s): J45.20 - Mild intermittent asthma, uncomplicated Problem List Initiated/Reviewed/Updated: Yes Orders Last 24hrs: Active Orders 24 hr Category Date Time Status Patient Status [ADT] Routine ADT 07/18/19 00:30 Active Activity as Tolerated [RC] PFP Care 07/18/19 04:26 Active Communication Order [RC] ASDIRECTED Care 07/18/19 04:26 Active Heart Tones [RC] ASDIRECTED Care 07/18/19 04:28 Active Non Stress Test [RC] PER UNIT ROUTINE Care 07/18/19 00:30 Active Notify Provider [RC] ASDIRECTED Care 07/18/19 07:08 Active Notify Provider [RC] PFP Care 07/18/19 04:26 Active Notify Provider [RC] PRN Care 07/18/19 04:26 Active Peripheral IV Care [RC] . DIRECTED Care 07/18/19 01:36 Active Vital Signs [RC] PER UNIT ROUTINE Care 07/18/19 00:30 Active Vital Signs [RC] PER UNIT ROUTINE Care 07/18/19 04:26 Active Regular Diet [DIET] Diet 07/18/19 Breakfast Active RAPID PLASMA REAGIN,RPR [CHEM] Routine Lab 07/18/19 05:05 Received Acetaminophen [Tylenol] Med 07/18/19 04:26 Active 650 mg PO Q4H PRN Bupivacaine/fentaNYL/NS [fentaNYL/Bupivacaine/NS 2 MCG- Med 07/18/19 07:08 Active 0.125% 100 ML] 100 ml EPIDUR ASDIRECTED PRN Calcium Carbonate [Tums] Med 07/18/19 04:26 Active 1,000 mg PO Q2H PRN Lactated Ringers [Ringers, Lactated] 1,000 ml Med 07/18/19 04:30 Active IV ASDIRECTED Nalbuphine [Nubain] Med 07/18/19 04:26 Active 10 mg IVPUSH Q2H PRN Ondansetron [Zofran] Med 07/18/19 04:26 Active 4 mg IVPUSH Q4H PRN Oxytocin/Lactated Ringers [Pitocin in LR 10 Units/1,000 Med 07/18/19 04:30 Active ML] 10 unit in 1,000 ml IV .CONTINUOUS Oxytocin/Lactated Ringers [Pitocin in LR 10 Units/1,000 Med 07/18/19 04:30 Active ML] 10 unit in 1,000 ml IV TITRATE Sodium Chloride 0.9% [Saline Flush] Med 07/18/19 01:36 Active 10 ml FLUSH ASDIRECTED PRN diphenhydrAMINE [Benadryl] Med 07/18/19 07:08 Active 25 mg IVPUSH Q6H PRN ePHEDrine [ePHEDrine sulfate] Med 07/18/19 07:08 Active 5 mg IVPUSH ASDIRECTED PRN fentaNYL [Sublimaze] Med 07/18/19 07:08 Active 100 mcg EPIDUR Q3H PRN Electronic Heart Tones Ext w TOCO [WOMSER] Oth 07/18/19 04:26 Ordered Routine Electronic Heart Tones Internal [WOMSER] Per Unit Oth 07/18/19 04:26 Ordered Routine Peripheral IV Insertion Adult [OM.PC] Routine Oth 07/18/19 01:36 Ordered Peripheral IV Insertion Adult [OM.PC] Routine Oth 07/18/19 04:26 Ordered Resuscitation Status Routine Resus Stat 07/18/19 00:30 Ordered Medication Orders Acetaminophen (Tylenol) 650 mg PO Q4H PRN PRN Reason: Pain (Mild 1-3) and fever Calcium Carbonate/Glycine (Tums) 1,000 mg PO Q2H PRN PRN Reason: Indigestion Diphenhydramine HCl (Benadryl) 25 mg IVPUSH Q6H PRN PRN Reason: pruritis Ephedrine Sulfate (Ephedrine Sulfate) 5 mg IVPUSH ASDIRECTED PRN PRN Reason: Hypotension Fentanyl (Sublimaze) 100 mcg EPIDUR Q3H PRN PRN Reason: Pain Fentanyl/Bupivacaine HCl (Fentanyl/Bupivacaine/Ns 2 Mcg-0.125% 100 Ml) 100 ml EPIDUR ASDIRECTED PRN PRN Reason: Pain Lactated Ringer's (Ringers, Lactated) 1,000 mls @ 100 mls/hr IV ASDIRECTED SHELLI Oxytocin/Lactated Ringer's (Pitocin In Lr 10 Units/1,000 Ml) 10 unit in 1,000 mls @ 12 mls/hr IV TITRATE SHELLI; Protocol Last Admin: 07/18/19 05:29 Dose: 2 munits/min, 12 mls/hr Oxytocin/Lactated Ringer's (Pitocin In Lr 10 Units/1,000 Ml) 10 unit in 1,000 mls @ 500 mls/hr IV .CONTINUOUS SHELLI Nalbuphine HCl (Nubain) 10 mg IVPUSH Q2H PRN PRN Reason: Pain Ondansetron HCl (Zofran) 4 mg IVPUSH Q4H PRN PRN Reason: Nausea/Vomiting Sodium Chloride (Saline Flush) 10 ml FLUSH ASDIRECTED PRN PRN Reason: Keep Vein Open Assessment/Plan Comment:: * Labs done * Patient presented in early labor. Was planned for IOL later this week. Offered early start to IOL and did accept. Pitocin started. AROM just done. * GBS negative * Desires epidural * Anticipate * Rh negative, will assess baby blood type following delivery
[2019-07-18] MEDS: Lactated Ringers 1,000 ML IV SCH ×3 (08:25→08:27)
--- NOTE | 2019-07-18 08:41 | PCM.PREANE ---
Preanesthetic Assessment - Anesthesia/Transfusion/Family Hx Anesthesia History: Prior Anesthesia Without Reaction Family History of Anesthesia Reaction: No Transfusion History: No Prior Transfusion(s) - Review of Systems General: No Symptoms Pulmonary: No Symptoms, Other (Asthma controlled using inhaler as need. Last use was yesterday evening. ) Cardiovascular: No Symptoms Gastrointestinal: Other (GERD with ) Neurological: Other (low back pain) Other: Reports: None - Physical Assessment Vital Signs: Last Vital Signs Temp 36.2 C 07/18/19 00:30 Pulse Resp 16 07/18/19 00:30 BP 117/79 07/18/19 00:30 Pulse Ox 100 07/18/19 00:30 Height: 1.63 m Weight: 88.451 kg ASA Class: 2 Mental Status: Alert & Oriented x3 Airway Class: Mallampati = 1 Dentition: Reports: Normal Dentition Thyro-Mental Finger Breadths: 3 Mouth Opening Finger Breadths: 3 ROM/Head Extension: Full Lungs: Clear to Auscultation, Normal Respiratory Effort Cardiovascular: Regular Rate, Regular Rhythm - Lab Values: Laboratory Last Values WBC 9.26 K/mm3 (3.98-10.04) 07/18/19 05:05 RBC 3.90 M/mm3 (3.98-5.22) L 07/18/19 05:05 Hgb 9.9 gm/dl (11.2-15.7) L 07/18/19 05:05 Hct 32.3 % (34.1-44.9) L 07/18/19 05:05 MCV 82.8 fl (79.4-94.8) 07/18/19 05:05 MCH 25.4 pg (25.6-32.2) L 07/18/19 05:05 MCHC 30.7 g/dl (32.2-35.5) L 07/18/19 05:05 RDW Std Deviation 46.9 fL (36.4-46.3) H 07/18/19 05:05 Plt Count 173 K/mm3 (182-369) L 07/18/19 05:05 MPV 10.0 fl (9.4-12.3) 07/18/19 05:05 Urine Color Light yellow (Yellow) 07/18/19 01:00 Urine Appearance Clear (Clear) 07/18/19 01:00 Urine pH 7.0 (5.0-8.0) 07/18/19 01:00 Ur Specific [place] 1.010 (1.005-1.030) 07/18/19 01:00 Urine Protein Negative (Negative) 07/18/19 01:00 Urine Glucose (UA) Negative (Negative) 07/18/19 01:00 Urine Ketones Negative (Negative) 07/18/19 01:00 Urine Occult Blood Negative (Negative) 07/18/19 01:00 Urine Nitrite Negative (Negative) 07/18/19 01:00 Urine Bilirubin Negative (Negative) 07/18/19 01:00 Urine Urobilinogen 0.2 (0.2-1.0) 07/18/19 01:00 Ur Leukocyte Esterase Negative (Negative) 07/18/19 01:00 - Allergies Allergies/Adverse Reactions: Allergies Allergy/AdvReac Type Severity Reaction Status Date / Time Sulfa (Sulfonamide Allergy Hives Verified 07/18/19 02:31 Antibiotics) sulfamethoxazole Allergy Hives Verified 07/18/19 02:31 [From Bactrim] trimethoprim [From Bactrim] Allergy Hives Verified 07/18/19 02:31 - Acknowledgements Anesthesia Type Planned: Epidural Pt an Appropriate Candidate for the Planned Anesthesia: Yes Alternatives and Risks of Anesthesia Discussed w Pt/Guardian: Yes Pt/Guardian Understands and Agrees with Anesthesia Plan: Yes PreAnesthesia Questionnaire - Past Health History Medical/Surgical History: Denies Medical/Surgical History HEENT History: Reports: None 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: - Past Surgical History HEENT Surgical History: Reports: Oral Surgery (wisdom tooth), Tonsillectomy - SUBSTANCE USE Smoking Status *Q: Never Smoker Second Hand Smoke Exposure: No Recreational Drug Use History: No - HOME MEDS Home Medications: Home Meds Budesonide/Formoterol Fumarate [Symbicort 160-4.5 Mcg Inhaler] 1 puff IH BID 07/30 [History] Docusate Sodium [Colace] 100 mg PO BID PRN cap 12/17/17 [Rx] Ibuprofen [Motrin] 600 mg PO Q6H PRN tablet 12/17/17 [Rx] - CURRENT (IN HOUSE) MEDS Current Meds: Current Medications Acetaminophen (Tylenol) 650 mg PO Q4H PRN PRN Reason: Pain (Mild 1-3) and fever Calcium Carbonate/Glycine (Tums) 1,000 mg PO Q2H PRN PRN Reason: Indigestion Diphenhydramine HCl (Benadryl) 25 mg IVPUSH Q6H PRN PRN Reason: pruritis Ephedrine Sulfate (Ephedrine Sulfate) 5 mg IVPUSH ASDIRECTED PRN PRN Reason: Hypotension Fentanyl (Sublimaze) 100 mcg EPIDUR Q3H PRN PRN Reason: Pain Last Admin: 07/18/19 08:22 Dose: 100 mcg Fentanyl/Bupivacaine HCl (Fentanyl/Bupivacaine/Ns 2 Mcg-0.125% 100 Ml) 100 ml EPIDUR ASDIRECTED PRN PRN Reason: Pain Last Admin: 07/18/19 08:21 Dose: 100 ml Lactated Ringer's (Ringers, Lactated) 1,000 mls @ 100 mls/hr IV ASDIRECTED SHELLI Last Admin: 07/18/19 08:27 Dose: 100 mls/hr Oxytocin/Lactated Ringer's (Pitocin In Lr 10 Units/1,000 Ml) 10 unit in 1,000 mls @ 12 mls/hr IV TITRATE SHELLI; Protocol Last Titration: 07/18/19 07:30 Dose: 0 munits/min, 0 mls/hr Oxytocin/Lactated Ringer's (Pitocin In Lr 10 Units/1,000 Ml) 10 unit in 1,000 mls @ 500 mls/hr IV .CONTINUOUS SHELLI Nalbuphine HCl (Nubain) 10 mg IVPUSH Q2H PRN PRN Reason: Pain Ondansetron HCl (Zofran) 4 mg IVPUSH Q4H PRN PRN Reason: Nausea/Vomiting Sodium Chloride (Saline Flush) 10 ml FLUSH ASDIRECTED PRN PRN Reason: Keep Vein Open Discontinued Medications Lactated Ringer's (Ringers, Lactated) 1,000 mls @ 999 mls/hr IV ONETIME ONE Stop: 07/18/19 02:35 Last Admin: 07/18/19 03:00 Dose: 999 mls/hr
--- NOTE | 2019-07-18 12:19 | PCM.DEL ---
L & D Note - General Info Date of Service: 07/18/19 - Delivery Note Labor: Induced by ARM, Induced by Oxytocin Delivery Outcome: Livebirth Infant Delivery Method: Spontaneous Vaginal Delivery-Single Infant Delivery Mode: Spontaneous Presentation: Right Occiput Anterior (ZENOBIA) Nuchal Cord: None Anesthesia Type: Epidural Amniotic Fluid Description: Clear Episiotomy Type: None Laceration: 2nd Degree, Perineal Suture type: Vicryl Suture size: 2-0 Placenta: Intact, Spontaneous Cord: 3 Vessels Estimated Blood Loss: 200 Resuscitation Needed: Yes [place]: Bulb Syringe, Stimulated, Warmed, Fertile Used, Warmer Used Delivery Comments (Free Text/Narrative):: Patient found to be complete and began pushing. With maternal pushing effort head delivered from an ZENOBIA presentation. No nuchal cord present. With gentle downward traction the shoulders and body delivered. placed on maternal abdomen. Cord clamped and cut. Cord blood obtained. Placenta allowed time to separate and expelled intact. Inspection of the perineum showed a 2nd degree laceration which was repaired with a 2-0 vicryl in the typical fashion. - General Info Date of Service: 07/18/19 - Patient Data Vitals - Most Recent: Last Vital Signs Temp 36.2 C 07/18/19 00:30 Pulse 87 07/18/19 08:30 Resp 16 07/18/19 00:30 BP 123/70 07/18/19 08:30 Pulse Ox 100 07/18/19 08:03 Weight - Most Recent: 88.451 kg I&O - Last 24 Hours: Intake & Output 07/17/19 07/18/19 07/18/19 22:59 06:59 14:59 Intake Total 120 Balance 120 - Problem List & Annotations (1) 39 weeks gestation of SNOMED Code(s): 45154978 Code(s): Z3A.39 - 39 WEEKS GESTATION OF Status: Acute Current Visit: No (2) Rh negative state in antepartum period SNOMED Code(s): 634003312 Code(s): O26.899 - OTH RELATED CONDITIONS, UNSPECIFIED TRIMESTER; Z67.91 - UNSPECIFIED BLOOD TYPE, RH NEGATIVE Status: Acute Current Visit: Yes (3) Asthma SNOMED Code(s): 494977263 Code(s): J45.909 - UNSPECIFIED ASTHMA, UNCOMPLICATED Status: Acute Current Visit: Yes Qualifiers: Asthma severity: mild Asthma persistence: intermittent Asthma complication type: uncomplicated Qualified Code(s): J45.20 - Mild intermittent asthma, uncomplicated (4) Vaginal delivery SNOMED Code(s): 320506600 Code(s): O80 - ENCOUNTER FOR FULL-TERM UNCOMPLICATED DELIVERY Status: Acute Current Visit: No - Problem List Review Problem List Initiated/Reviewed/Updated: Yes - My Orders Last 24 Hours: My Active Orders 07/18/19 00:30 Patient Status [ADT] Routine Vital Signs [RC] PER UNIT ROUTINE Resuscitation Status Routine 07/18/19 01:36 Peripheral IV Care [RC] Q2HR Sodium Chloride 0.9% [Saline Flush] 10 ml FLUSH ASDIRECTED PRN Peripheral IV Insertion Adult [OM.PC] Routine 07/18/19 04:26 Activity as Tolerated [RC] PFP Communication Order [RC] ASDIRECTED Notify Provider [RC] PFP Vital Signs [RC] PER UNIT ROUTINE Acetaminophen [Tylenol] 650 mg PO Q4H PRN Calcium Carbonate [Tums] 1,000 mg PO Q2H PRN Nalbuphine [Nubain] 10 mg IVPUSH Q2H PRN Ondansetron [Zofran] 4 mg IVPUSH Q4H PRN Electronic Heart Tones Ext w TOCO [WOMSER] Routine Electronic Heart Tones Internal [WOMSER] Per Unit Routine Peripheral IV Insertion Adult [OM.PC] Routine 07/18/19 04:30 Lactated Ringers [Ringers, Lactated] 1,000 ml IV ASDIRECTED Oxytocin/Lactated Ringers [Pitocin in LR 10 Units/1,000 ML] 10 unit in 1,000 ml IV .CONTINUOUS Oxytocin/Lactated Ringers [Pitocin in LR 10 Units/1,000 ML] 10 unit in 1,000 ml IV TITRATE 07/18/19 05:05 RAPID PLASMA REAGIN,RPR [CHEM] Routine 07/18/19 07:31 Patient Status [ADT] Routine 07/18/19 Breakfast Regular Diet [DIET] - Assessment Assessment:: PPD#0 - Plan Plan:: * Routine cares * Breast feeding * Rh negative, will assess baby blood type * Discharge home tomorrow
[2019-07-18] MEDS ORDERED: Ibuprofen 600 MG Tab PO PRN (12:35)
[2019-07-18] MEDS ORDERED: Benzocaine/Menthol 20%-0.5% Spray 56 GM Canister TOP PRN (12:35)
[2019-07-18] MEDS ORDERED: Witch Hazel Medicated Pads 40/Jar TOP PRN (12:35)
[2019-07-18] MEDS ORDERED: Docusate Sodium 100 MG Cap PO PRN (12:35)
--- NOTE | 2019-07-19 07:23 | PCM.DCSUM1 ---
Discharge Summary - Discharge Data Discharge Date: 07/19/19 Discharge Disposition: Home, Self-Care 01 Condition: Good - Referral to Home Health Primary Care Physician: Emma Childs MD - Discharge Diagnosis/Problem(s) (1) 39 weeks gestation of SNOMED Code(s): 95084593 ICD Code: Z3A.39 - 39 WEEKS GESTATION OF Status: Acute Current Visit: No (2) Rh negative state in antepartum period SNOMED Code(s): 602577833 ICD Code: O26.899 - OTH RELATED CONDITIONS, UNSPECIFIED TRIMESTER; Z67.91 - UNSPECIFIED BLOOD TYPE, RH NEGATIVE Status: Acute Current Visit: Yes (3) Asthma SNOMED Code(s): 369286386 ICD Code: J45.909 - UNSPECIFIED ASTHMA, UNCOMPLICATED Status: Acute Current Visit: Yes Qualifiers: Asthma severity: mild Asthma persistence: intermittent Asthma complication type: uncomplicated Qualified Code(s): J45.20 - Mild intermittent asthma, uncomplicated (4) Vaginal delivery SNOMED Code(s): 239528401 ICD Code: O80 - ENCOUNTER FOR FULL-TERM UNCOMPLICATED DELIVERY Status: Acute Current Visit: No - Patient Summary/Data Complications: None Consults: None Recommended Follow-up Testing/Procedures: Follow up in 3 weeks for check Hospital Course: 23 y/o at 39 5/7 wks presented with irregular contractions. Was given option of induction and agreed. Done with pitocin and AROM. Progressed well to complete dilation and underwent an uncomplicated . See delivery note. did well and was discharged home on PPD#1 - Patient Instructions Diet: Regular Diet as Tolerated Activity: As Tolerated Activity, Other: Pelvic rest for 6 weeks Driving: May Drive Today Showering/Bathing: May Shower Showering/Bathing, Other: May Bathe Notify Provider of: Fever, Increased Pain, Swelling and Redness, Drainage, Nausea and/or Vomiting - Discharge Plan *PRESCRIPTION DRUG MONITORING PROGRAM REVIEWED*: No *COPY OF PRESCRIPTION DRUG MONITORING REPORT IN PATIENT BRENNAN: No Home Medications: Home Meds Budesonide/Formoterol Fumarate [Symbicort 160-4.5 Mcg Inhaler] 1 puff IH BID 07/30 [History] Docusate Sodium [Colace] 100 mg PO BID PRN cap 12/17/17 [Rx] Ibuprofen [Motrin] 600 mg PO Q6H PRN tablet 12/17/17 [Rx] Referrals: Emma Childs MD [Primary Care Provider] - (3 weeks for check - can be telemedicine visit ) - Discharge Summary/Plan Comment DC Time >30 min.: No - Patient Data Vitals - Most Recent: Last Vital Signs Temp 36.3 C 07/19/19 03:00 Pulse 83 07/19/19 03:00 Resp 14 07/19/19 03:00 BP 103/69 07/19/19 03:00 Pulse Ox 99 07/19/19 03:00 Weight - Most Recent: 88.451 kg I&O - Last 24 hours: Intake & Output 07/18/19 07/19/19 07/19/19 22:59 06:59 14:59 Intake Total 1 Balance 1 Lab Results - Last 24 hrs: Laboratory Results - last 24 hr 07/18/19 07/18/19 Range/Units 05:05 15:48 RPR Non-reactive (NONREACTIVE) Blood Type O NEGATIVE Gel Antibody Screen Negative Screen 0 ros/5 flds - neg RhIG Candidate? Yes Rhogam Indicated Yes, baby rh pos H Med Orders - Current: Current Medications Acetaminophen (Tylenol) 650 mg PO Q4H PRN PRN Reason: mild pain or fever Benzocaine/Menthol (Dermoplast Pain Relief [place]) 0 gm TOP ASDIRECTED PRN PRN Reason: Perineal Comfort Measure Last Admin: 07/18/19 16:22 Dose: 1 spray Docusate Sodium (Colace) 100 mg PO BID PRN PRN Reason: Constipation Ibuprofen (Motrin) 600 mg PO Q6H PRN PRN Reason: Mild pain or fever Last Admin: 07/18/19 22:14 Dose: 600 mg Witch [place] (Tucks) 1 pad TOP ASDIRECTED PRN PRN Reason: Perineal Comfort Measure Last Admin: 07/18/19 16:23 Dose: 1 pad Discontinued Medications Acetaminophen (Tylenol) 650 mg PO Q4H PRN PRN Reason: Pain (Mild 1-3) and fever Calcium Carbonate/Glycine (Tums) 1,000 mg PO Q2H PRN PRN Reason: Indigestion Diphenhydramine HCl (Benadryl) 25 mg IVPUSH Q6H PRN PRN Reason: pruritis Ephedrine Sulfate (Ephedrine Sulfate) 5 mg IVPUSH ASDIRECTED PRN PRN Reason: Hypotension Fentanyl (Sublimaze) 100 mcg EPIDUR Q3H PRN PRN Reason: Pain Last Admin: 07/18/19 08:22 Dose: 100 mcg Fentanyl/Bupivacaine HCl (Fentanyl/Bupivacaine/Ns 2 Mcg-0.125% 100 Ml) 100 ml EPIDUR ASDIRECTED PRN PRN Reason: Pain Last Admin: 07/18/19 08:21 Dose: 100 ml Lactated Ringer's (Ringers, Lactated) 1,000 mls @ 999 mls/hr IV ONETIME ONE Stop: 07/18/19 02:35 Last Admin: 07/18/19 03:00 Dose: 999 mls/hr Lactated Ringer's (Ringers, Lactated) 1,000 mls @ 100 mls/hr IV ASDIRECTED SHELLI Last Admin: 07/18/19 08:27 Dose: 100 mls/hr Oxytocin/Lactated Ringer's (Pitocin In Lr 10 Units/1,000 Ml) 10 unit in 1,000 mls @ 12 mls/hr IV TITRATE SHELLI; Protocol Last Titration: 07/18/19 10:28 Dose: 6 munits/min, 36 mls/hr Oxytocin/Lactated Ringer's (Pitocin In Lr 10 Units/1,000 Ml) 10 unit in 1,000 mls @ 500 mls/hr IV .CONTINUOUS SHELLI Nalbuphine HCl (Nubain) 10 mg IVPUSH Q2H PRN PRN Reason: Pain Ondansetron HCl (Zofran) 4 mg IVPUSH Q4H PRN PRN Reason: Nausea/Vomiting Sodium Chloride (Saline Flush) 10 ml FLUSH ASDIRECTED PRN PRN Reason: Keep Vein Open
--- NOTE | 2019-07-19 07:23 | PCM.PNPP ---
- General Info Date of Service: 07/19/19 Functional Status: Reports: Pain Controlled, Tolerating Diet, Ambulating, Urinating - Review of Systems General: Reports: No Symptoms Pulmonary: Reports: No Symptoms Cardiovascular: Reports: No Symptoms Gastrointestinal: Reports: No Symptoms Genitourinary: Reports: No Symptoms Musculoskeletal: Reports: No Symptoms - Patient Data Vital Signs - Most Recent: Last Vital Signs Temp 36.3 C 07/19/19 03:00 Pulse 83 07/19/19 03:00 Resp 14 07/19/19 03:00 BP 103/69 07/19/19 03:00 Pulse Ox 99 07/19/19 03:00 Weight - Most Recent: 88.451 kg I&O - Last 24 Hours: Intake & Output 07/18/19 07/19/19 07/19/19 22:59 06:59 14:59 Intake Total 1 Balance 1 Lab Results - Last 24 Hours: Laboratory Results - last 24 hr 07/18/19 07/18/19 Range/Units 05:05 15:48 RPR Non-reactive (NONREACTIVE) Blood Type O NEGATIVE Gel Antibody Screen Negative Screen 0 ros/5 flds - neg RhIG Candidate? Yes Rhogam Indicated Yes, baby rh pos H Med Orders - Current: Current Medications Acetaminophen (Tylenol) 650 mg PO Q4H PRN PRN Reason: mild pain or fever Benzocaine/Menthol (Dermoplast Pain Relief [place]) 0 gm TOP ASDIRECTED PRN PRN Reason: Perineal Comfort Measure Last Admin: 07/18/19 16:22 Dose: 1 spray Docusate Sodium (Colace) 100 mg PO BID PRN PRN Reason: Constipation Ibuprofen (Motrin) 600 mg PO Q6H PRN PRN Reason: Mild pain or fever Last Admin: 07/18/19 22:14 Dose: 600 mg Witch [place]vira (Tucks) 1 pad TOP ASDIRECTED PRN PRN Reason: Perineal Comfort Measure Last Admin: 07/18/19 16:23 Dose: 1 pad Discontinued Medications Acetaminophen (Tylenol) 650 mg PO Q4H PRN PRN Reason: Pain (Mild 1-3) and fever Calcium Carbonate/Glycine (Tums) 1,000 mg PO Q2H PRN PRN Reason: Indigestion Diphenhydramine HCl (Benadryl) 25 mg IVPUSH Q6H PRN PRN Reason: pruritis Ephedrine Sulfate (Ephedrine Sulfate) 5 mg IVPUSH ASDIRECTED PRN PRN Reason: Hypotension Fentanyl (Sublimaze) 100 mcg EPIDUR Q3H PRN PRN Reason: Pain Last Admin: 07/18/19 08:22 Dose: 100 mcg Fentanyl/Bupivacaine HCl (Fentanyl/Bupivacaine/Ns 2 Mcg-0.125% 100 Ml) 100 ml EPIDUR ASDIRECTED PRN PRN Reason: Pain Last Admin: 07/18/19 08:21 Dose: 100 ml Lactated Ringer's (Ringers, Lactated) 1,000 mls @ 999 mls/hr IV ONETIME ONE Stop: 07/18/19 02:35 Last Admin: 07/18/19 03:00 Dose: 999 mls/hr Lactated Ringer's (Ringers, Lactated) 1,000 mls @ 100 mls/hr IV ASDIRECTED SHELLI Last Admin: 07/18/19 08:27 Dose: 100 mls/hr Oxytocin/Lactated Ringer's (Pitocin In Lr 10 Units/1,000 Ml) 10 unit in 1,000 mls @ 12 mls/hr IV TITRATE SHELLI; Protocol Last Titration: 07/18/19 10:28 Dose: 6 munits/min, 36 mls/hr Oxytocin/Lactated Ringer's (Pitocin In Lr 10 Units/1,000 Ml) 10 unit in 1,000 mls @ 500 mls/hr IV .CONTINUOUS SHELLI Nalbuphine HCl (Nubain) 10 mg IVPUSH Q2H PRN PRN Reason: Pain Ondansetron HCl (Zofran) 4 mg IVPUSH Q4H PRN PRN Reason: Nausea/Vomiting Sodium Chloride (Saline Flush) 10 ml FLUSH ASDIRECTED PRN PRN Reason: Keep Vein Open - Interaction Infant Disposition, : [place] in Room with Family Interaction: Holding Infant Infant Feeding: Breastfed Infant; Nursed Well Support Person: - Recovery Exam Fundal Tone: Firm Fundal Level: 2 Fingerbreadths Below Umbilicus Fundal Placement: Midline Lochia Amount: Small Lochia Color: Rubra/Red Perineum Description: Edematous, Other (see below) Other Perinuem Description: 2nd deg w/repair Episiotomy/Laceration: Approximated Bladder Status: Nonpalpable, Voiding Urinary Elimination: Voided - Exam General: Alert, Oriented, Cooperative GI/Abdominal Exam: Soft, Non-Tender Extremities: Normal Inspection - Problem List & Annotations (1) 39 weeks gestation of SNOMED Code(s): 27273706 Code(s): Z3A.39 - 39 WEEKS GESTATION OF Status: Acute Current Visit: No (2) Rh negative state in antepartum period SNOMED Code(s): 112731304 Code(s): O26.899 - OTH RELATED CONDITIONS, UNSPECIFIED TRIMESTER; Z67.91 - UNSPECIFIED BLOOD TYPE, RH NEGATIVE Status: Acute Current Visit: Yes (3) Asthma SNOMED Code(s): 387747004 Code(s): J45.909 - UNSPECIFIED ASTHMA, UNCOMPLICATED Status: Acute Current Visit: Yes Qualifiers: Asthma severity: mild Asthma persistence: intermittent Asthma complication type: uncomplicated Qualified Code(s): J45.20 - Mild intermittent asthma, uncomplicated (4) Vaginal delivery SNOMED Code(s): 425125530 Code(s): O80 - ENCOUNTER FOR FULL-TERM UNCOMPLICATED DELIVERY Status: Acute Current Visit: No - Problem List Review Problem List Initiated/Reviewed/Updated: Yes - My Orders Last 24 Hours: My Active Orders 07/18/19 12:35 Activity as Tolerated [RC] PER UNIT ROUTINE Vital Signs [RC] 03,09,15,21 Acetaminophen [Tylenol] 650 mg PO Q4H PRN Benzocaine/Menthol [Dermoplast Pain Relief [place]] See Dose Instructions TOP ASDIRECTED PRN Docusate Sodium [Colace] 100 mg PO BID PRN Ibuprofen [Motrin] 600 mg PO Q6H PRN witch Elvira [Tucks] 1 pad TOP ASDIRECTED PRN Assess Lochia [WOMSER] Per Unit Routine Assess Uterine Involution [WOMSER] Per Unit Routine Breast Pump [WOMSER] Per Unit Routine Heat Therapy [OM.PC] PRN Ice Therapy [OM.PC] Per Unit Routine Perineal Care [OM.PC] Per Unit Routine Peripheral IV Discontinue [OM.PC] Routine Sitz Bath [OM.PC] Per Unit Routine 07/18/19 Lunch Regular Diet [DIET] 07/19/19 07:22 Ready for Discharge [RC] PER UNIT ROUTINE 07/19/19 12:35 Heat Therapy [OM.PC] PRN - Assessment Assessment:: PPD#1 - Plan Plan:: * Routine cares * Breast feeding * Rh negative, baby Rh positive, has received Rhogam * Discharge home today
--- NOTE | 2019-07-19 08:30 | PCM48HPAN ---
Post Anesthesia Note - EVALUATION WITHIN 48HRS OF ANESTHETIC Vital Signs in Normal Range: Yes Patient Participated in Evaluation: Yes Respiratory Function Stable: Yes Airway Patent: Yes Cardiovascular Function Stable: Yes Hydration Status Stable: Yes Pain Control Satisfactory: Yes Nausea and Vomiting Control Satisfactory: Yes Mental Status Recovered: Yes Vital Signs: Last Vital Signs Temp 36.3 C 07/19/19 03:00 Pulse 83 07/19/19 03:00 Resp 14 07/19/19 03:00 BP 103/69 07/19/19 03:00 Pulse Ox 99 07/19/19 03:00
== END 2019-07-19 13:30 | disposition home or self-care (01) | DRG 807 ==
LOC: JD.OB 00:17 → JD.OBCHECK 00:17 → JD.OB 07:31 → OBSVTOIN 12:00 → JD.OB 12:01
PROVIDERS: ADMIT Obstetrics & Gynecology; ATTEND Obstetrics & Gynecology
PROC: 10E0XZZ Delivery of Products of Conception, External Approach (ICD-10-PCS; principal; 2019-07-18)
PROC: 0KQM0ZZ Repair Perineum Muscle, Open Approach (ICD-10-PCS; 2019-07-18)
PROC: 10907ZC Drainage of Amniotic Fluid, Therapeutic from Products of Conception, Via Natural or Artificial Opening (ICD-10-PCS; 2019-07-18)
PROC: 3E033VJ Introduction of Other Hormone into Peripheral Vein, Percutaneous Approach (ICD-10-PCS; 2019-07-18)
PROC: 3E0R3BZ Introduction of Anesthetic Agent into Spinal Canal, Percutaneous Approach (ICD-10-PCS; 2019-07-18)
PROC: 3E0334Z Introduction of Serum, Toxoid and Vaccine into Peripheral Vein, Percutaneous Approach (ICD-10-PCS; 2019-07-18)
DX: O99.52 Diseases of the respiratory system complicating childbirth (principal); Z37.0 Single live birth; J45.20 Mild intermittent asthma, uncomplicated; Z3A.39 39 weeks gestation of pregnancy; Z79.899 Other long term (current) drug therapy; Z88.2 Allergy status to sulfonamides; Z88.1 Allergy status to other antibiotic agents; O70.1 Second degree perineal laceration during delivery; O26.893 Other specified pregnancy related conditions, third trimester
CPT/HCPCS: 01967; 36415; 51702; 59025; 59409; 81003; 85027; 85461; 86592; 86850; 86900; 86901; A9270-GY; J2590; J2790; J3010; J3490; J7120

== ENCOUNTER 2021-03-04 15:17 | Emergency (ER) | payer BC, OTHER ==
[2021-03-04] MEDS ORDERED: Sodium Chloride 0.9% 10 ML Syringe FLUSH PRN (15:48)
[2021-03-04] MEDS ORDERED: Sodium Chloride 0.9% 1,000 ML IV ONE ×2 (15:48→17:30)
[2021-03-04] MEDS ORDERED: Ondansetron 4 MG/2 ML SDV IVPUSH ONE (16:08)
[2021-03-04] MEDS ORDERED: Ketorolac 30 MG/ML SDV IVPUSH ONE (17:33)
--- NOTE | 2021-03-04 18:03 | EDM.PDOC ---
ED HPI GENERAL MEDICAL PROBLEM - General Chief Complaint: Gastrointestinal Problem Stated Complaint: VOMITING DIARRHEA ABDOMINAL PAIN Time Seen by Provider: 03/04/21 15:44 Source of Information: Reports: Patient History Limitations: Reports: No Limitations - History of Present Illness INITIAL COMMENTS - FREE TEXT/NARRATIVE: 25-year-old female presents the emergency department with complaints of nausea, vomiting and diarrhea that started this morning. Patient states that she has had 10+ stools since this morning. She states she is also developed flank pain and lower abdominal cramping. She states that she suspected the cramping was due to her menstrual cycle however she states that she should only be ovulating at this time. She also complains of right flank pain. Patient states that she had Covid symptoms in January and was subsequently treated for Covid pneumonia with a course of 2 different antibiotics approximately 1 month ago. She states that yesterday she was seen at the walk-in clinic due to shortness of breath and chest pressure. At that time she was evaluated and started on prednisone. She states that she took her first dose of prednisone last evening and she states she felt like it made her face tingle after taking it and then developed diarrhea and has had urinary frequency. She states she has had fever and chills for the past couple of days as well. - Related Data Allergies Allergy/AdvReac Type Severity Reaction Status Date / Time Sulfa (Sulfonamide Allergy Hives Verified 07/18/19 02:31 Antibiotics) sulfamethoxazole Allergy Hives Verified 07/18/19 02:31 [From Bactrim] trimethoprim [From Bactrim] Allergy Hives Verified 07/18/19 02:31 Home Meds: Home Meds Budesonide/Formoterol Fumarate [Symbicort 160-4.5 Mcg Inhaler] 1 puff IH BID 12/16/17 [History] Docusate Sodium [Colace] 100 mg PO BID PRN cap 12/17/17 [Rx] Ibuprofen [Motrin] 600 mg PO Q6H PRN tablet 12/17/17 [Rx] Cefdinir [Omnicef] 300 mg PO BID #10 cap 03/04/21 [Rx] Ondansetron [Zofran ODT] 4 mg PO Q6H PRN #12 tab.dis 03/04/21 [Rx] Past Medical History - Past Health History Medical/Surgical History: Denies Medical/Surgical History HEENT History: Reports: None Respiratory History: Reports: Asthma 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 ED EXAM, GI/ABD - Physical Exam Exam: See Below Exam Limited By: No Limitations General Appearance: Alert, WD/WN, No Apparent Distress Ears: Normal External Exam, Hearing Grossly Normal Nose: Normal Inspection Throat/Mouth: Normal Inspection, Normal Lips, Normal Voice, No Airway Compromise Head: Atraumatic Neck: Normal Inspection, Supple, Non-Tender Respiratory/Chest: No Respiratory Distress, Lungs Clear, Normal Breath Sounds, No Accessory Muscle Use, Chest Non-Tender Cardiovascular: Normal Peripheral Pulses, Regular Rate, Rhythm, No Edema, No Murmur, Tachycardia GI/Abdominal Exam: Normal Bowel Sounds, Soft, No Distention, Tender (Right lower quadrant and suprapubic) (Female) Exam: Deferred Rectal (Female) Exam: Deferred Back Exam: Normal Inspection, Full Range of Motion, CVA Tenderness (R). No: CVA Tenderness (L) Extremities: Normal Inspection, Normal Range of Motion, Non-Tender, No Pedal Edema, Normal Capillary Refill Neurological: Alert, Oriented, Normal Cognition Psychiatric: Normal Affect, Normal Mood Skin Exam: Warm, Dry, Intact, Normal Color, No Rash Lymphatic: No Adenopathy Course - Vital Signs Text/Narrative:: As stated above, patient presents with nausea vomiting and diarrhea as well as lower abdominal discomfort and right flank pain. Physical exam reveals right lo wer quadrant abdominal tenderness as well as suprapubic tenderness. She does have right costovertebral angle tenderness as well. Physical exam is otherwise unremarkable. She is tachycardic at 127 bpm and likely dehydrated. Will obtain lab studies to include a CBC, CMP, magnesium, and a C-reactive protein. We will also obtain a urinalysis with micro and culture and if indicated as well as a urine test. Patient will receive a liter of IV fluids as well as Zofran to treat her nausea. Patient is likely dehydrated. Last Recorded V/S: Last Vital Signs Temp 97.9 F 03/04/21 15:37 Pulse 127 H 03/04/21 15:37 Resp 20 03/04/21 15:37 BP 121/2 L 03/04/21 15:37 Pulse Ox 100 03/04/21 15:37 - Orders/Labs/Meds Orders: Active Orders 24 hr Category Date Time Status CULTURE URINE [MREF] Stat Lab 03/04/21 17:45 Received Sodium Chloride 0.9% [Saline Flush] Med 03/04/21 15:48 Active 10 ml FLUSH ASDIRECTED PRN Saline Lock Insert [OM.PC] Stat Oth 03/04/21 15:48 Ordered Medication Orders Sodium Chloride (Sodium Chloride 0.9% 10 Ml Syringe) 10 ml FLUSH ASDIRECTED PRN PRN Reason: Keep Vein Open Last Admin: 03/04/21 16:27 Dose: 10 ml Documented by: KERRY Labs: Laboratory Tests 03/04/21 03/04/21 03/04/21 Range/Units 16:06 16:06 17:45 WBC 12.06 H (3.98-10.04) K/mm3 RBC 5.85 H (3.98-5.22) M/mm3 Hgb 16.8 H D (11.2-15.7) gm/dl Hct 50.0 H (34.1-44.9) % MCV 85.5 (79.4-94.8) fl MCH 28.7 (25.6-32.2) pg MCHC 33.6 (32.2-35.5) g/dl RDW Std Deviation 44.9 (36.4-46.3) fL Plt Count 172 L (182-369) K/mm3 MPV 10.9 (9.4-12.3) fl Neut % (Auto) 92.4 H (34.0-71.1) % Lymph % (Auto) 1.7 L (19.3-51.7) % [place] % (Auto) 5.2 (4.7-12.5) % Eos % (Auto) 0.4 L (0.7-5.8) Baso % (Auto) 0.1 (0.1-1.2) % Neut # (Auto) 11.14 H (1.56-6.13) K/mm3 Lymph # (Auto) 0.21 L (1.18-3.74) K/mm3 [place] # (Auto) 0.63 H (0.24-0.36) K/mm3 Eos # (Auto) 0.05 (0.04-0.36) K/mm3 Baso # (Auto) 0.01 (0.01-0.08) K/mm3 Manual Slide Review Abnormal smear Sodium 140 (136-145) mEq/L Potassium 3.7 (3.5-5.1) mEq/L Chloride 103 (98-107) mEq/L Carbon Dioxide 25 (21-32) mEq/L Anion Gap 15.7 H (5-15) BUN 17 (7-18) mg/dL Creatinine 0.8 (0.55-1.02) mg/dL Est Cr Clr Drug Dosing 88.15 mL/min Estimated GFR (MDRD) > 60 (>60) mL/min BUN/Creatinine Ratio 21.3 H (14-18) Glucose 106 H (70-99) mg/dL Calcium 9.0 (8.5-10.1) mg/dL Magnesium 1.9 (1.8-2.4) mg/dL Total Bilirubin 1.1 H (0.2-1.0) mg/dL AST 14 L (15-37) U/L ALT 16 (14-59) U/L Alkaline Phosphatase 65 (46-116) U/L C-Reactive Protein 0.3 (<1.0) mg/dL Total Protein 8.1 (6.4-8.2) g/dl Albumin 4.6 (3.4-5.0) g/dl Globulin 3.5 gm/dL Albumin/Globulin Ratio 1.3 (1-2) Urine Color Yellow (Yellow) Urine Appearance Slt cloudy H (Clear) Urine pH 5.5 (5.0-8.0) Ur Specific [place] > or = 1.030 (1.005-1.030) Urine Protein Negative (Negative) Urine Glucose (UA) Negative (Negative) Urine Ketones 4+ H (Negative) Urine Occult Blood Negative (Negative) Urine Nitrite Negative (Negative) Urine Bilirubin Negative (Negative) Urine Urobilinogen 0.2 (0.2-1.0) Ur Leukocyte Esterase 1+ H (Negative) Urine RBC 5-10 H (0-5) /hpf Urine WBC 30-40 H (0-5) /hpf Ur Epithelial Cells 10-20 H (0-5) /hpf Urine Bacteria Moderate H (FEW) /hpf Urine Mucus Rare (FEW) /hpf Urine HCG, Qual (NEGATIVE) 03/04/21 Range/Units 17:45 WBC (3.98-10.04) K/mm3 RBC (3.98-5.22) M/mm3 Hgb (11.2-15.7) gm/dl Hct (34.1-44.9) % MCV (79.4-94.8) fl MCH (25.6-32.2) pg MCHC (32.2-35.5) g/dl RDW Std Deviation (36.4-46.3) fL Plt Count (182-369) K/mm3 MPV (9.4-12.3) fl Neut % (Auto) (34.0-71.1) % Lymph % (Auto) (19.3-51.7) % [place] % (Auto) (4.7-12.5) % Eos % (Auto) (0.7-5.8) Baso % (Auto) (0.1-1.2) % Neut # (Auto) (1.56-6.13) K/mm3 Lymph # (Auto) (1.18-3.74) K/mm3 [place] # (Auto) (0.24-0.36) K/mm3 Eos # (Auto) (0.04-0.36) K/mm3 Baso # (Auto) (0.01-0.08) K/mm3 Manual Slide Review Sodium (136-145) mEq/L Potassium (3.5-5.1) mEq/L Chloride (98-107) mEq/L Carbon Dioxide (21-32) mEq/L Anion Gap (5-15) BUN (7-18) mg/dL Creatinine (0.55-1.02) mg/dL Est Cr Clr Drug Dosing mL/min Estimated GFR (MDRD) (>60) mL/min BUN/Creatinine Ratio (14-18) Glucose (70-99) mg/dL Calcium (8.5-10.1) mg/dL Magnesium (1.8-2.4) mg/dL Total Bilirubin (0.2-1.0) mg/dL AST (15-37) U/L ALT (14-59) U/L Alkaline Phosphatase (46-116) U/L C-Reactive Protein (<1.0) mg/dL Total Protein (6.4-8.2) g/dl Albumin (3.4-5.0) g/dl Globulin gm/dL Albumin/Globulin Ratio (1-2) Urine Color (Yellow) Urine Appearance (Clear) Urine pH (5.0-8.0) Ur Specific [place] (1.005-1.030) Urine Protein (Negative) Urine Glucose (UA) (Negative) Urine Ketones (Negative) Urine Occult Blood (Negative) Urine Nitrite (Negative) Urine Bilirubin (Negative) Urine Urobilinogen (0.2-1.0) Ur Leukocyte Esterase (Negative) Urine RBC (0-5) /hpf Urine WBC (0-5) /hpf Ur Epithelial Cells (0-5) /hpf Urine Bacteria (FEW) /hpf Urine Mucus (FEW) /hpf Urine HCG, Qual Negative (NEGATIVE) Meds: Medications Generic Name Dose Route Start Last Admin Trade Name Freq PRN Reason Stop Dose Admin Sodium Chloride 10 ml 03/04/21 15:48 03/04/21 16:27 Sodium Chloride 0.9% 10 Ml Syringe FLUSH 10 ml ASDIRECTED PRN Administration Keep Vein Open Discontinued Medications Generic Name Dose Route Start Last Admin Trade Name Frekarl PRN Reason Stop Dose Admin Sodium Chloride 1,000 mls @ 999 mls/hr 03/04/21 15:48 03/04/21 16:00 Normal Saline IV 03/04/21 16:48 999 mls/hr ONETIME ONE Administration Sodium Chloride 1,000 mls @ 999 mls/hr 03/04/21 17:30 03/04/21 17:20 Normal Saline IV 03/04/21 18:30 999 mls/hr ONETIME ONE Administration Ceftriaxone Sodium 1 gm/ 100 mls @ 200 mls/hr 03/04/21 18:26 03/04/21 18:40 Sodium Chloride IV 03/04/21 18:55 200 mls/hr ONETIME ONE Administration Ketorolac Tromethamine 30 mg 03/04/21 17:33 03/04/21 17:50 Ketorolac 30 Mg/Ml Sdv IVPUSH 03/04/21 17:34 30 mg ONETIME ONE Administration Ondansetron HCl 4 mg 03/04/21 16:08 03/04/21 16:16 Ondansetron 4 Mg/2 Ml Sdv IVPUSH 03/04/21 16:09 4 mg ONETIME ONE Administration - Re-Assessments/Exams Free Text/Narrative Re-Assessment/Exam: 03/04/21 18:01 Hematology reveals a WBC of 12.06, hemoglobin 16.8, hematocrit 50.0, platelet count 172 Chemistry reveals a sodium of 140, potassium 3.7, anion gap 15.7, BUN 17, creatinine 0.8, glucose 106, magnesium 1.9, total bilirubin 1.1, AST 14, ALT 16, C-reactive protein 0.3 Patient is still unable to void at this time so we will give her another liter o f IV fluids as we do need a urinalysis as well as a urine test. 03/04/21 18:25 Urinalysis reveals 4+ ketone, 1+ leukocyte esterase, 5-10 RBC, 30-40 WBC, 10-20 epithelial cells and moderate bacteria, urine is negative Patient will be given a gram of Rocephin while in the emergency department and then started on Omnicef. Departure - Departure Time of Disposition: 19:00 Disposition: Home, Self-Care 01 Condition: Good Clinical Impression: UTI, Urinary tract infectious disease - Discharge Information Prescriptions: Cefdinir [Omnicef] 300 mg PO BID #10 cap Instructions: Urinary Tract Infection, Adult, [id number] Referrals: Edmond Ortiz MD [Primary Care Provider] - Forms: ED Department Discharge Additional Instructions: You were seen in the emergency department today with nausea, vomiting, diarrhea and lower abdominal discomfort with associated right flank pain. Lab studies were completed which shows very slightly elevated white blood cell count however you were dehydrated and as discussed this can cause your white blood cell count to be elevated. Also taking steroid such as prednisone does cause a slight elevation in your white blood cell count so this could be associated with that as well. Inflammatory markers were not elevated so you likely do not have a systemic infection. Urinalysis was completed which does show you have a significant urinary tract infection. While in the emergency department you received IV fluids, pain medication and IV antibiotics. I have sent prescription electronically to your pharmacy for an antibiotic called Omnicef. You will need to take this medication twice daily for 5 days to treat your urinary tract infection. Once you have completed your course of antibiotics recommend that you follow-up with your primary care provider to have your urine rechecked to be sure we have resolved the infection. You may also take Azo and [id number] medication to treat bladder irritation associated with urinary tract infection. Keep in mind that this medication does turn your urine orange. Continue taking Tylenol 650 mg every 4 hours or ibuprofen 600 mg every 6-8 hours for fever or discomfort. Drink plenty of fluids and get plenty rest. I have also sent prescription to your pharmacy for medication to treat nausea. This medication is called Zofran. You may take 1 tablet every 6 hours as needed for nausea or vomiting. Place the tablet under your tongue and allow it is a dissolve. Do not swallow this medication well. Wait approximately 30 minutes prior to eating or drinking after taking this medication to allow to take full effect. Sepsis Event Note (ED) - Focused Exam Vital Signs: Vital Signs Temp Pulse Resp BP Pulse Ox 03/04/21 15:37 97.9 F 127 H 20 121/2 L 100 - My Orders Last 24 Hours: My Active Orders 03/04/21 15:48 Sodium Chloride 0.9% [Saline Flush] 10 ml FLUSH ASDIRECTED PRN Saline Lock Insert [OM.PC] Stat 03/04/21 17:45 CULTURE URINE [MREF] Stat - Assessment/Plan Last 24 Hours: My Active Orders 03/04/21 15:48 Sodium Chloride 0.9% [Saline Flush] 10 ml FLUSH ASDIRECTED PRN Saline Lock Insert [OM.PC] Stat 03/04/21 17:45 CULTURE URINE [MREF] Stat
[2021-03-04] MEDS ORDERED: cefTRIAXone 1 GM in Sodium Chloride 0.9% 100 ML IV ONE (18:26)
== END 2021-03-04 19:13 | disposition home or self-care (01) ==
LOC: JD.ED 15:17
DX: N39.0 Urinary tract infection, site not specified (principal); Z88.2 Allergy status to sulfonamides; Z88.1 Allergy status to other antibiotic agents
CPT/HCPCS: 36415; 80053; 81001; 81025; 83735; 85025; 86140; 87086; 96365; 96375; 99284; J0696; J1885; J2405; J7030

== ENCOUNTER 2023-08-07 01:46 | Inpatient (IN) | payer BC ==
[2023-08-07] MEDS ORDERED: Ondansetron 4 MG/2 ML SDV IVPUSH PRN (19:00)
[2023-08-07] MEDS ORDERED: Lidocaine 1% 50 ML MDV INJECT PRN (19:00)
[2023-08-07] MEDS ORDERED: Sodium Chloride 0.9% 10 ML Syringe FLUSH PRN (19:00)
[2023-08-07] MEDS ORDERED: Nalbuphine 10 MG/ML Syringe IVPUSH PRN (19:00)
[2023-08-07] MEDS ORDERED: Oxytocin/Lactated Ringers 30 UNIT/500 ML BAG IV SCH (19:00)
[2023-08-07 19:20] LABS: BASOPHILS PERCENT AUTO 0.3 % (0.0-1.0); EOSINOPHILS ABSOLUTE AUTO 0.2 K/mm3 (0.0-0.4); EOSINOPHILS PERCENT AUTO 2.1 % (0.0-6.0); HEMATOCRIT 32.7 % (37.0-47.0); HEMOGLOBIN 10.3 gm/dl (12.0-16.0); IMMATURE GRAN PERCENT AUTO 0.9 % (0.0-0.4); LYMPHOCYTES ABSOLUTE AUTO 1.8 K/mm3 (1.0-4.8); LYMPHOCYTES PERCENT AUTO 16.3 % (24.0-44.0); MEAN CORPUSCULAR HEMOGLOBIN 26.1 pg (28.0-32.0); MEAN CORPUSCULAR HGB CONC 31.5 g/dl (32.0-36.0); MEAN CORPUSCULAR VOLUME 82.8 fl (83.0-99.0); MONOCYTES ABSOLUTE AUTO 0.9 K/mm3 (0.0-0.8); MONOCYTES PERCENT AUTO 8.3 % (0.0-8.0); NEUTROPHILS ABSOLUTE AUTO 7.8 K/mm3 (1.8-7.7); NEUTROPHILS PERCENT AUTO 72.1 % (41.0-71.0); PLATELET COUNT,PLT 181 K/mm3 (150-400); RED BLOOD CELL COUNT 3.95 M/mm3 (4.10-5.30); WHITE BLOOD CELL COUNT,WBC 10.78 K/mm3 (3.9-11.3)
[2023-08-07] MEDS: Lactated Ringers 1,000 ML IV SCH (19:58)
[2023-08-07] MEDS ORDERED: ePHEDrine 50 MG/ML SDV IVPUSH PRN (20:46)
[2023-08-07] MEDS ORDERED: diphenhydrAMINE 50 MG/ML SDV IVPUSH PRN (20:46)
[2023-08-07] MEDS ORDERED: Sodium Chloride 0.9% 10 ML Syringe FLUSH SCH (21:00)
[2023-08-07] MEDS: Bupivacaine/fentaNYL/NS 100 ML Bag EPIDUR PRN (21:24)
[2023-08-07] MEDS: fentaNYL 100 MCG/2 ML SDV EPIDUR PRN (21:32)
[2023-08-08] MEDS: Oxytocin/Lactated Ringers 30 UNIT/500 ML BAG IV SCH (01:46)
[2023-08-08] MEDS ORDERED: Witch Hazel Medicated Pads 40/Jar TOP PRN (03:53)
[2023-08-08] MEDS ORDERED: Docusate Sodium 100 MG Cap PO PRN (03:53)
[2023-08-08] MEDS ORDERED: Benzocaine/Menthol 20%-0.5% Spray 78 GM Cannister TOP PRN (03:53)
[2023-08-08] MEDS: Ibuprofen 600 MG Tab PO PRN (14:03)
[2023-08-08] MEDS: Acetaminophen 325 MG Tab PO PRN (16:42)
== END 2023-08-09 10:08 | disposition home or self-care (01) | DRG 560 ==
LOC: JD.OB 01:46 → OBSVTOIN 08-08 01:46 → JD.OB 08-08 01:47
PROVIDERS: ADMIT Obstetrics & Gynecology; ATTEND Obstetrics & Gynecology
PROC: 10E0XZZ Delivery of Products of Conception, External Approach (ICD-10-PCS; principal; 2023-08-08)
PROC: 10907ZC Drainage of Amniotic Fluid, Therapeutic from Products of Conception, Via Natural or Artificial Opening (ICD-10-PCS; 2023-08-08)
PROC: 3E0R3BZ Introduction of Anesthetic Agent into Spinal Canal, Percutaneous Approach (ICD-10-PCS; 2023-08-08)
PROC: 00HU33Z Insertion of Infusion Device into Spinal Canal, Percutaneous Approach (ICD-10-PCS; 2023-08-08)
DX: O26.893 Other specified pregnancy related conditions, third trimester (principal); Z67.41 Type O blood, Rh negative; Z3A.39 39 weeks gestation of pregnancy; Z37.0 Single live birth; Z88.2 Allergy status to sulfonamides; O99.013 Anemia complicating pregnancy, third trimester; D64.9 Anemia, unspecified
CPT/HCPCS: 36415; 36430; 51702; 59025; 59409; 85025; 85461; 86592; 86850; 86900; 86901; A9270-GY; J2790; J3010; J3490; J7120; J7999